=== PATIENT | female | born 1985 | race Caucasian/White ===

== ENCOUNTER 2022-11-12 15:37 | Emergency (ER) | payer SELFPAY ==
[2022-11-12] MEDS ORDERED: FAMOTIDINE 20 MG/2 ML VIAL IV ONE (15:54)
[2022-11-12] MEDS ORDERED: NA CHLORIDE 0.9% 1,000 ML ONE (15:54)
[2022-11-12] MEDS ORDERED: ONDANSETRON 4 MG/2 ML VIAL ONE ×2 (15:54→20:07)
[2022-11-12 16:10] LABS: Absolute Lymphocytes (CBC) 0.8 K/uL (0.7-4.9); Lymphocytes % 3.2 % (15.3-44.8); MCV 91.4 fL (80-100); MPV 8.3 fL (7.6-11.3); RBC Red Blood Cell Count 4.16 M/uL (3.86-4.86)
[2022-11-12 16:33] LABS: ALT/SGPT 171 U/L (13-56); AST/SGOT 272 U/L (15-37); Albumin 3.5 g/dL (3.4-5.0); Alkaline Phosphatase 101 U/L (45-117); BUN Blood Urea Nitrogen 17 mg/dL (7-18); Bicarbonate 27 mEq/L (21-32); Bilirubin Total 1.6 mg/dL (0.2-1.0); Glomerular Filtration Rate 86 ml/min (=/>90); Glucose Level 84 mg/dL (74-106); Potassium 3.7 mEq/L (3.5-5.1); Sodium Level 138 mEq/L (136-145)
[2022-11-12 16:34] LABS: Lipase > 5000 U/L (13-75)
[2022-11-12 17:17] LABS: Urine Blood Trace-intact (Negative); Urine Glucose Negative (Negative); Urine Protein Negative (Negative); Urine Specific Gravity 1.015 (1.005-1.030); Urine pH 5.5 (5.0-7.0)
[2022-11-12] MEDS ORDERED: MORPHINE 4 MG/ML SYR ONE ×2 (17:22→19:54)
[2022-11-12] MEDS ORDERED: Ciprofloxacin 200mg IV 0 MG/0 ML IV.SOLN. IV ONE (17:22)
[2022-11-12] MEDS ORDERED: METRONIDAZOLE 500mg IVPB 500 MG/100 ML BAG IV ONE (17:22)
[2022-11-12] MEDS ORDERED: CIPROFLOXACIN 400mg IV 400 MG/200 ML BAG IV ONE (17:25)
[2022-11-12 17:29] LABS: Urine Specific Gravity/Preg 1.015 (1.005-1.030)
[2022-11-12 17:30] LABS: Urine Bacteria <20 /HPF (<20); Urine Mucus Slight /HPF (None Seen); Urine RBC <5 /HPF (None Seen)
[2022-11-12 18:01] LABS: Blood Morphology Comment NOT SEEN (NOT SEEN); Platelet Estimate ADEQ
--- NOTE | 2022-11-12 18:02 | RAD REPORT ---
EXAM DESCRIPTION: CT - Abdomen Pelvis W Contrast - 11/12/2022 5:40 pm CLINICAL HISTORY: Abdominal pain COMPARISON: none. TECHNIQUE: Computed axial tomography of the abdomen pelvis was obtained. 100 cc Isovue-300 was admin istered intravenously. Oral contrast was not requested which limits evaluation of bowel and appendix All CT scans are performed using dose optimization technique as appropriate and may include automated exposure control or mA/KV adjustment according to patient size. FINDINGS: Mild to moderate dilatation of the intra and extrahepatic biliary tree. The pancreatic head is mildly enlarged. Pancreatic duct is normal caliber. Small to moderate amount o f peripancreatic fluid. No pseudocyst. Portal vein patent The spleen, adrenals and kidneys unremarkable. Normal appendix. No evidence diverticulitis. Prominent irregularly-shaped left ovarian follicle. No s ignificant ascites IMPRESSION: Enlargement of the pancreatic head with small to moderate amount of peripancreatic fluid and mild to moderate dilatation of the biliary tree. Most likely the patient has pancreatitis. However, given the normal pancreatic duct and dilatation of the biliary tree another consideration is that the patient has a pancreatic head mass. It is recommended that the patient have an MRCP and hernandez creas MRI for further evaluation
[2022-11-12 18:15] LABS: SARS-CoV-2 Antigen Rapid Res Negative (Negative)
--- NOTE | 2022-11-12 18:31 | ER ---
Nurse's Notes [facility] Name: Vilma Paz Age: 37 yrs Sex: Female : 1985 Arrival Date: 11/12/2022 Time: 15:39 Bed 7 Private MD: Diagnosis: Biliary acute pancreatitis;Acute pancreatitis without necrosis or infection, unspecified;Abdominal pain, Generalized;Upper abdominal pain, unspecified Presentation: 11/12 15:40 Chief complaint: EMS states: patient called saying she had vomited blood, she has ko1 thrown up 3 times today and it had a "blob" of blood in it the 3rd time. Coronavirus screen: At this time, the client does not indicate any symptoms associated with coronavirus-19. Ebola Screen: No symptoms or risks identified at this time. Initial Sepsis Screen: Does the patient meet any 2 criteria? No. Patient's initial sepsis screen is negative. Does the patient have a suspected source of infection? No. Patient's initial sepsis screen is negative. Risk Assessment: Do you want to hurt yourself or someone else? Patient reports no desire to harm self or others. Onset of symptoms was November 12, 2022. 15:40 Method Of Arrival: EMS: [facility] ko1 15:40 Acuity: ERICA 3 ko1 Triage Assessment: 15:45 General: Appears in no apparent distress. comfortable, Behavior is calm, cooperative, ko1 appropriate for age. Pain: Complains of pain in abdomen. Historical: - Allergies: 15:45 No Known Allergies; ko1 - PMHx: 15:45 down syndrome; Cerebral palsy; ko1 - Immunization history:: Adult Immunizations up to date. - Social history:: Smoking status: Patient denies any tobacco usage or history of. Screenin:36 [facility] ED Fall Risk Assessment (Adult) History of falling in the last 3 months, ph including since admission No falls in past 3 months (0 pts) Confusion or Disorientation No (0 pts) Intoxicated or Sedated No (0 pts) Impaired Gait No (0 pts) Mobility Assist Device Used No (0 pt) Altered Elimination No (0 pt). Abuse screen: Denies threats or abuse. Denies injuries from another. Nutritional screening: No deficits noted. Tuberculosis screening: No symptoms or risk factors identified. Assessment: 16:33 General: Appears in no apparent distress. Behavior is calm, cooperative, appropriate ph for age. Pain: Complains of pain in abdomen Pain radiates to back. Neuro: Level of Consciousness is awake, alert, obeys commands, Oriented to person, place, time, situation. Cardiovascular: Capillary refill < 3 seconds in bilateral fingers Patient's skin is warm and dry. Respiratory: Airway is patent Respiratory effort is even, unlabored, Respiratory pattern is regular, symmetrical. GI: Reports lower abdominal pain, upper abdominal pain, nausea, vomiting. Derm: Skin is healthy with good turgor, Skin is pink, warm \\T\\ dry. Vital Signs: 15:40 BP 120 / 71; Pulse 108; Resp 18; Temp 97; Pulse Ox 99% ; Weight 81.65 kg; Height 5 ft. ko1 7 in. ; 16:30 BP 121 / 78; Pulse 101; Resp 18; Pulse Ox 99% on R/A; ph 17:36 BP 138 / 104; Pulse 99; Resp 18; Pulse Ox 98% on R/A; ph 15:40 Body Mass Index 28.19 (81.65 kg, 170.18 cm) ko1 ED Course: 15:39 Patient arrived in ED. ko1 15:39 Giovani Morales MD is Attending Physician. kdr 15:45 Triage completed. ko1 15:45 Arm band placed on right wrist. ko1 16:02 Type And Screen Sent. ko1 16:02 CBC with Diff Sent. ko1 16:02 CMP Sent. ko1 16:02 Lipase Sent. ko1 16:05 Maintain EMS IV. Dressing intact. Good blood return noted. Site clean \\T\\ dry. Gauge \\T\\ ph site: 20 LAC. 16:28 Darby Britton, RN is Primary Nurse. ph 17:37 Patient has correct armband on for positive identification. Bed in low position. Call ph light in reach. Side rails up X 1. Pulse ox on. NIBP on. 17:38 No provider procedures requiring assistance completed. ph 17:42 CT Abd/Pelvis - IV Contrast Only In Process Unspecified. EDMS 17:53 SARS RAPID Sent. ko1 18:15 [facility] bd Administered Medications: 16:02 Drug: NS 0.9% IV 1000 ml Route: IV; Rate: 1 bolus; Site: left antecubital; ko1 16:02 Drug: Famotidine IVP 20 mg Route: IVP; Site: left antecubital; ko1 16:02 Drug: Ondansetron IVP 4 mg Route: IVP; Site: left antecubital; ko1 17:33 Drug: morphine IVP or IV 4 mg Route: IVP; Infused Over: 4 mins; Site: left antecubital; ph 17:33 Drug: Ciprofloxacin IVPB 400 mg Volume: 200 ml; Route: IVPB; Infused Over: 60 mins; ph Site: left antecubital; Medication: 17:37 VIS not applicable for this client. ph Outcome: 18:31 ER care complete, transfer ordered by . kdr Signatures: Dispatcher [employer] EDMS Snow Perry Kevin, MD MD kdr Darby Britton RN RN Delores Doan RN RN ko1
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
[2022-11-12 23:10] VITALS: BP 115/59; O2SAT 94
[2022-11-12 23:11] VITALS: TEMP 98
== END 2022-11-12 21:15 | disposition short-term general hospital (02) ==
LOC: ER 15:37
DX: K85.10 Biliary acute pancreatitis without necrosis or infection (principal); K85.90 Acute pancreatitis without necrosis or infection, unspecified; R10.10 Upper abdominal pain, unspecified
CPT/HCPCS: 36415; 74177; 80053; 81003; 81015; 81025; 83690; 85025; 86850; 86900; 86901; 87040; 87086; 87088; 87811; 96361; 96365; 96366; 96367; 96375; 99285; J0744; J2405; J7030; Q9967

== ENCOUNTER → 2023-09-08 | Emergency (ER) | payer SELFPAY ==
[~2023-09-08] MED LIST: ASPIRIN 81 MG CHEWABLE TABLET ONE
[2023-09-08 15:15] LABS: Absolute Lymphocytes (CBC) 2.3 K/uL (0.7-4.9); Hematocrit 39.6 % (36.0-45.0); Lymphocytes % 25.4 % (15.3-44.8); MPV 8.1 fL (7.6-11.3); Platelets 341 thou/uL (152-406); RBC Red Blood Cell Count 4.35 M/uL (3.86-4.86)
[2023-09-08 15:35] LABS: ALT/SGPT 18 U/L (13-56); AST/SGOT 11 U/L (15-37); Albumin 3.4 g/dL (3.4-5.0); Alkaline Phosphatase 48 U/L (45-117); BUN Blood Urea Nitrogen 12 mg/dL (7-18); Bicarbonate 27 mEq/L (21-32); Bilirubin Direct 0.1 mg/dL (0-0.2); Bilirubin Indirect, Calculated 0.3 mg/dL (0.2-0.8); Bilirubin Total 0.4 mg/dL (0.2-1.0); Glomerular Filtration Rate 89 ml/min (=/>90); Glucose Level 80 mg/dL (74-106); Magnesium 2.1 mg/dL (1.6-2.4); NT PRO-BNP 22 pg/mL (<125); Potassium 3.8 mEq/L (3.5-5.1); Protein, Total 7.7 g/dL (6.4-8.2); Sodium Level 138 mEq/L (136-145)
[2023-09-08 15:36] LABS: Troponin High Sensitivity < 3.0 pg/mL (<58.9)
--- NOTE | 2023-09-08 16:26 | RAD REPORT ---
EXAM DESCRIPTION: Russ Single View09/08/2023 3:54 pm CLINICAL HISTORY: Chest pain COMPARISON: none FINDINGS: The lungs appear clear of acute infiltrate. The heart is normal size IMPRESSION: No acute abnormalities displayed
--- NOTE | 2023-09-08 17:24 | EDPHYS ---
Physician Documentation [facility] Name: Vilma Paz Age: 37 yrs Sex: Female : 1985 Arrival Date: 09/08/2023 Time: 14:38 Bed 15 Private MD: ED Physician Josep Abel HPI: 09/08 17:40 This 37 yrs old Female presents to ER via Ambulatory with complaints of Chest Pain. kb 17:40 Pt is a 37 year old female who presents with chest pain that started on 0130. Denies kb shortness of breath. States pain is to entire chest and upper back. States she hasn't had pain like this in the past. . 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 - Social history:: Smoking status: Patient denies any tobacco usage or history of. ROS: 15:06 Constitutional: Negative for fever, chills, and weight loss, kb 15:06 Cardiovascular: Positive for chest pain, 15:06 All other systems are negative, Exam: 15:07 Constitutional: This is a well developed, well nourished patient who is awake, alert, kb and in no acute distress. Head/Face: Normocephalic, atraumatic. ENT: Moist Mucous membranes Cardiovascular: Regular rate Respiratory: Respirations even and unlabored. No increased work of breathing. Talking in full sentences Abdomen/GI: Soft, non-tender. No distention Skin: Warm, dry with normal turgor. Normal color. MS/ Extremity: Pulses equal, no cyanosis. Neurovascular intact. Full, normal range of motion. Neuro: Awake and alert, GCS 15, oriented to person, place, time, and situation. Moves all extremities. Normal gait. 15:07 ECG was reviewed by the Attending Physician. Vital Signs: 14:52 BP 123 / 87; Pulse 100; Resp 20; Temp 97.2; Pulse Ox 95% ; Weight 86.18 kg; Pain 8/10; db 16:00 BP 112 / 68; Pulse 88; Resp 14; Pulse Ox 99% on R/A; Pain 8/10; tl4 17:00 BP 112 / 46; Pulse 78; Resp 18 S; Pulse Ox 95% on R/A; cm10 14:52 Pain Scale: Adult db 16:00 Pain Scale: Adult tl4 [place] Coma Score: 16:00 Eye Response: spontaneous(4). Motor Response: obeys commands(6). Verbal Response: tl4 oriented(5). Total: 15. MDM: 14:43 Patient medically screened. kb 17:40 Data reviewed: vital signs, nurses notes. kb 17:41 Differential diagnosis: abnormal EKG, acute myocardial infarction, coronary artery kb disease chest wall pain, pulmonary embolus. Consideration of Admission/Observation Escalation of care including admission/observation considered. admission considered but serial troponin negative, HEART score 0. Test considered but Not performed: CT: CT chest considered, but d-dimer wnl. Historians other than the Patient: Parent: mother. Counseling: I had a detailed discussion with the patient and/or guardian regarding the historical points, exam findings, and any diagnostic results supporting the discharge/admit diagnosis, lab results, radiology results, the need for outpatient follow up, a family practitioner, to return to the emergency department if symptoms worsen or persist or if there are any questions or concerns that arise at home. 09/08 14:47 Order name: Basic Metabolic Panel; Complete Time: 15:38 kb 09/08 14:47 Order name: CBC with Diff; Complete Time: 15:18 kb 09/08 14:47 Order name: LFT's; Complete Time: 15:38 kb 09/08 14:47 Order name: Magnesium; Complete Time: 15:38 kb 09/08 14:47 Order name: NT PRO-BNP; Complete Time: 15:38 kb 09/08 14:47 Order name: Troponin HS; Complete Time: 15:38 kb 09/08 15:07 Order name: D-Dimer; Complete Time: 17:22 kb 09/08 16:44 Order name: Troponin High Sensitivity; Complete Time: 17:23 kb 09/08 14:47 Order name: XRAY Chest (1 view); Complete Time: 16:34 kb 09/08 14:47 Order name: EKG; Complete Time: 14:48 kb 09/08 14:47 Order name: Cardiac monitoring; Complete Time: 16:03 kb 09/08 14:47 Order name: EKG - Nurse/Tech; Complete Time: 14:57 kb 09/08 14:47 Order name: IV Saline Lock; Complete Time: 15:05 kb 09/08 14:47 Order name: Labs collected and sent; Complete Time: 15:05 kb 09/08 14:47 Order name: O2 Per Protocol; Complete Time: 16:03 kb 09/08 14:47 Order name: O2 Sat Monitoring; Complete Time: 16:03 kb EC:07 Rate is 105 beats/min. Rhythm is regular. QRS [place] is Normal. NV interval is normal at kb 124 msec. QRS interval is normal at 72 msec. QT interval is normal at 454 msec. Administered Medications: 15:05 Drug: Aspirin PO Chewable Tablet 324 mg PO once; 81 mg tablets x 4 Route: PO; ll1 Disposition: 17:56 Co-signature as Attending Physician, Josep Abel MD I reviewed the patient's care rn provided by the Advanced Practice Provider and agree with the diagnosis and treatment plan. Disposition Summary: 09/08/23 17:24 Discharge Ordered Notes: Location: Home kb Condition: Stable kb Diagnosis - Chest pain, unspecified kb Followup: kb - With: Emergency Department - When: As needed - Reason: Worsening of condition Followup: kb - With: Private Physician - When: 2 - 3 days - Reason: Recheck today's complaints, Continuance of care, Re-evaluation by your physician Discharge Instructions: - Discharge Summary Sheet kb - Nonspecific Chest Pain, Adult, [id number] kb Forms: - Medication Reconciliation Form kb - Thank You Letter kb - Antibiotic Education kb - Prescription Opioid Use kb - Patient Portal Instructions kb - Leadership Thank You Letter kb Signatures: Dispatcher [employer] Anali Henao, HEATER HELPER-C HEATER HELPER-Josep Kenyon MD MD rn Lewis, Lynsay RN RN ll1 Suzie Taveras, RN RN db
--- NOTE | 2023-09-08 17:24 | ER ---
Nurse's Notes [facility] Name: Vilma Paz Age: 37 yrs Sex: Female : 1985 Arrival Date: 09/08/2023 Time: 14:38 Bed 15 Private MD: Diagnosis: Chest pain, unspecified Presentation: 09/08 14:44 Chief complaint: Patient states: CP radiates into back, began at 0130 AM. Worried about ll1 having MO. Ebola Screen: Patient denies travel to an Ebola-affected area in the 21 days before illness onset. Initial Sepsis Screen: Does the patient meet any 2 criteria? No. Patient's initial sepsis screen is negative. Does the patient have a suspected source of infection? No. Patient's initial sepsis screen is negative. Risk Assessment: Do you want to hurt yourself or someone else? Patient reports no desire to harm self or others. 14:44 Method Of Arrival: Ambulatory ll1 14:44 Acuity: ERICA 3 ll1 14:52 Chief complaint: Patient states: CHEST PAIN STARTED THIS AM AT 0130. STATES THINKS db PASSED OUT AND WOKE UP ON THE FLOOR TODAY. LEFT ARM PAIN WITH INTERMITTENT NUMBNESS AND TINGLING. Coronavirus screen: Client denies travel out of the [place] in the last 14 days. At this time, the client does not indicate any symptoms associated with coronavirus-19. Onset of symptoms was September 08, 2023. 14:53 Coronavirus screen: Client denies travel out of the [place] in the last 14 days. At this ll1 time, the client does not indicate any symptoms associated with coronavirus-19. Onset of symptoms was September 08, 2023. Triage Assessment: 14:55 General: Appears in no apparent distress. comfortable, Behavior is calm, cooperative. db Pain: Complains of pain in chest. Pain: Pain radiates to left arm. Neuro: Level of Consciousness is awake, alert, obeys commands, Oriented to person, place, time, situation. Cardiovascular: Reports chest pain, Capillary refill < 3 seconds Patient's skin is warm and dry. Respiratory: Airway is patent Respiratory effort is even, unlabored, Respiratory pattern is regular, symmetrical. 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 - Social history:: Smoking status: Patient denies any tobacco usage or history of. Screenin:57 [facility] ED Fall Risk Assessment (Adult) History of falling in the last 3 months, db including since admission No falls in past 3 months (0 pts) Confusion or Disorientation No (0 pts) Intoxicated or Sedated No (0 pts) Impaired Gait No (0 pts) Mobility Assist Device Used No (0 pt) Altered Elimination No (0 pt) Score/Fall Risk Level 0 - 2 = Low Risk Oriented to surroundings, Maintained a safe environment. Abuse screen: Denies threats or abuse. Denies injuries from another. Nutritional screening: No deficits noted. Tuberculosis screening: No symptoms or risk factors identified. Assessment: 15:05 Reassessment: No changes from previously documented assessment. Patient and/or family ll1 updated on plan of care and expected duration. Pain level reassessed. Patient is alert, oriented x 3, equal unlabored respirations, skin warm/dry/pink. 15:41 Reassessment: No changes from previously documented assessment. Patient and/or family ll1 updated on plan of care and expected duration. Pain level reassessed. 15:58 Reassessment: No changes from previously documented assessment. Patient and/or family tl4 updated on plan of care and expected duration. Pain level reassessed. Patient is alert, oriented x 3, equal unlabored respirations, skin warm/dry/pink. Pain: Complains of pain in back and chest Pain began suddenly, 0400. Vital Signs: 14:52 BP 123 / 87; Pulse 100; Resp 20; Temp 97.2; Pulse Ox 95% ; Weight 86.18 kg; Pain 8/10; db 16:00 BP 112 / 68; Pulse 88; Resp 14; Pulse Ox 99% on R/A; Pain 8/10; tl4 17:00 BP 112 / 46; Pulse 78; Resp 18 S; Pulse Ox 95% on R/A; cm10 14:52 Pain Scale: Adult db 16:00 Pain Scale: Adult tl4 Vitals: 16:00 Cardiac Rhythm Assessment Regular Sinus rhythm. tl4 [place] Coma Score: 16:00 Eye Response: spontaneous(4). Motor Response: obeys commands(6). Verbal Response: tl4 oriented(5). Total: 15. ED Course: 14:41 Patient arrived in ED. im 14:43 [facility] Wood [facility]-C [facility] kb 14:43 Josep Abel MD is Attending Physician. kb 14:44 Triage completed. ll1 14:44 Arm band placed on. ll1 14:57 Patient has correct armband on for positive identification. db 14:57 EKG done, by ED staff, reviewed by Anali SWEENEY. Patient maintains SpO2 db saturation greater than 95% on room air. 15:06 Initial lab(s) drawn, by me, sent to lab. Inserted saline lock: 20 gauge in right aw1 antecubital area, using aseptic technique. 15:40 Patient placed in an exam room, on a stretcher. ll1 15:52 LogdaDemetri marcos is Primary Nurse. tl4 15:56 XRAY Chest (1 view) In Process Unspecified. EDMS 16:01 No provider procedures requiring assistance completed. tl4 16:02 Client placed on continuous cardiac and pulse oximetry monitoring. NIBP monitoring tl4 applied. service center supervisor on. 16:02 Provided Education on: ED process. tl4 16:03 D-Dimer Sent. tl4 17:41 IV discontinued, intact, bleeding controlled, No redness/swelling at site. Pressure cm10 dressing applied. Administered Medications: 15:05 Drug: Aspirin PO Chewable Tablet 324 mg PO once; 81 mg tablets x 4 Route: PO; ll1 Medication: 16:01 VIS not applicable for this client. tl4 Outcome: 17:24 Discharge ordered by . kb 17:41 Discharged to home ambulatory, with family, cm10 17:41 Condition: good 17:41 Discharge instructions given to patient, Instructed on discharge instructions, follow up and referral plans. Demonstrated understanding of instructions, follow-up care, 17:41 Patient left the ED. cm10 Signatures: Dispatcher [employer] EDMS Anali Wood FNP-C FNP-Ckb Lewis, Lynsay, RN RN ll1 Suzie Taveras RN RN db Mary Mcdaniel Clarissa, RN RN cm10 Jazmin Gotti aw1 LogdaDemetri marcos tl4 Corrections: (The following items were deleted from the chart) 14:54 14:44 Chief complaint: Patient states: CP radiates into back. Worried about having MO ll1 ll1
[2023-09-08 20:43] VITALS: BP 112/46; TEMP 97.2; O2SAT 95
--- NOTE | 2023-09-10 13:28 | EKG ---
Test Date: 2023-09-08 Test Time: 14:57:49 Writing Tutor: KATHI MEASUREMENT RESULTS: Intervals: Rate: 105 MI: 124 QRSD: 72 QT: 344 QTc: 454 [place]: P: 83 MI: 124 QRS: 75 T: 71 INTERPRETIVE STATEMENTS: Sinus tachycardia Otherwise normal ECG No previous ECG available for comparison Electronically Signed On 09-10-23 13:24:19 SCENE AND LIGHTING DESIGN LECTURER by Facundo Georges
== END ==
LOC: ER 14:38
DX: R07.9 Chest pain, unspecified (principal)
CPT/HCPCS: 36415; 71045; 80048; 80076; 83735; 83880; 84484; 85025; 85379; 93005; 99285

== ENCOUNTER 2023-12-04 11:52 | Observation (INO) | payer OTHER, SELFPAY ==
[2023-12-04 13:00] LABS: Absolute Basophils 0.1 K/uL (0-0.5); Absolute Eosinophils 0.1 K/uL (0-0.5); Absolute Lymphocytes (CBC) 1.6 K/uL (0.7-4.9); Absolute Monocytes 0.5 K/uL (0.1-1.3); Absolute Neutrophil 7.4 K/uL (1.8-8.0); Basophils % 0.8 % (0-1.3); Eosinophils % 1.3 % (0-4.4); Hematocrit 38.5 % (36.0-45.0); Hemoglobin 12.8 g/dL (12.0-15.0); Lymphocytes % 16.5 % (15.3-44.8); MCH 30.5 pg (27.0-35.0); MCHC 33.3 g/dL (32.0-36.0); MCV 91.6 fL (80-100); MPV 8.4 fL (7.6-11.3); Monocytes % 5.5 % (3.3-12.3); Neutrophils % 75.9 % (41.7-73.7); Platelets 382 thou/uL (152-406); RBC Red Blood Cell Count 4.21 M/uL (3.86-4.86); Red Cell Distribution Width 13.7 % (12.1-15.2)
[2023-12-04 13:08] LABS: PT Prothrombin Time 11.3 SECONDS (9.5-12.5); PTT, Activated Partial Thromb 31.5 SECONDS (24.3-36.9); Protime INR 1.03
[2023-12-04 13:19] LABS: ALT/SGPT 16 U/L (13-56); AST/SGOT 12 U/L (15-37); Albumin 3.5 g/dL (3.4-5.0); Albumin/Globulin Ratio 0.8 (1.1-1.8); Alkaline Phosphatase 51 U/L (45-117); Anion Gap 6.8 mEq/L (5.0-15.0); BUN Blood Urea Nitrogen 16 mg/dL (7-18); Bicarbonate 27 mEq/L (21-32); Bilirubin Total 0.3 mg/dL (0.2-1.0); Globulin 4.2 g/dL (2.3-3.5); Glomerular Filtration Rate 89 ml/min (=/>90); Glucose Level 92 mg/dL (74-106); Magnesium 1.9 mg/dL (1.6-2.4); Potassium 3.8 mEq/L (3.5-5.1); Protein, Total 7.7 g/dL (6.4-8.2); Sodium Level 138 mEq/L (136-145)
[2023-12-04 13:23] LABS: Bilirubin Direct < 0.1 mg/dL (0-0.2); Bilirubin Indirect, Calculated ND mg/dL (0.2-0.8); Troponin High Sensitivity < 3.0 pg/mL (<58.9)
--- NOTE | 2023-12-04 13:38 | RAD REPORT ---
EXAM DESCRIPTION: CT - CTHCSPWOC - 12/04/2023 1:15 pm CLINICAL HISTORY: Trauma, head and neck injury. SYNCOPE COMPARISON: Head C Spine Mpr Wo Con dated 07/01/2022 TECHNIQUE: Axial 5 mm thick images of the head were obtained. Axial 2 mm thick images of the cervical spine were obtained with sagittal and coronal reconstruction images generated and reviewed. All CT scans are performed using dose optimization technique as appropriate and may include automated exposure control or mA/KV adjustment according to patient size. FINDINGS: CT HEAD WITHOUT CONTRAST: No acute hemorrhage, hydrocephalus or extra-axial collection is identified.No areas of brain edema or midline shift. The paranasal sinuses and mastoids are clear.The calvarium is intact. CT CERVICAL SPINE WITHOUT CONTRAST: No fracture or subluxation.No prevertebral soft tissues swelling is identified. IMPRESSION: No acute intracranial or cervical spine findings.
[2023-12-04 13:43] LABS: Specific Gravity 1.011 (1.005-1.030)
[2023-12-04 13:47] LABS: Specific Gravity 1.011 (1.005-1.030); Sqamous Epithelial <5 /HPF (None Seen); Urine Bacteria <20 /HPF (<20); Urine Bilirubin NEGATIVE (Negative); Urine Blood 3+ (OVER) (Negative); Urine Clarity Extremely Turbid (Clear); Urine Color Light-Brown (Yellow); Urine Culture Reflex Order REFLEXED; Urine Glucose NEGATIVE (Negative); Urine Ketones NEGATIVE (Negative); Urine Microscopic Reflex YN ORDER UMIC; Urine Nitrite NEGATIVE (Negative); Urine Protein TRACE (Negative); Urine RBC >50 /HPF (None Seen); Urine Urobilinogen Normal (Normal); Urine WBC 20-50 /HPF (<5)
--- NOTE | 2023-12-04 13:57 | RAD REPORT ---
EXAM DESCRIPTION: RAD - Chest Single View - 12/04/2023 1:48 pm CLINICAL HISTORY: CHEST PAIN COMPARISON: Chest Single View dated 09/08/2023 FINDINGS: Lines: None. Lungs: No evidence of edema or pneumonia. Pleural: No significant pleural effusions or pneumothorax. Cardiac: The heart size is within normal limits. Mediastinum: Within normal limits. Bones: No acute fractures. Other: None IMPRESSION: No acute cardiopulmonary disease.
[2023-12-04] MEDS ORDERED: NA CHLORIDE 0.9% 1,000 ML ONE (14:13)
--- NOTE | 2023-12-04 15:45 | ER ---
Nurse's Notes [facility] Name: Vilma Paz Age: 38 yrs Sex: Female : 1985 Arrival Date: 12/04/2023 Time: 11:52 Bed 20 Private MD: Diagnosis: Syncope;Weakness;Chest pain, unspecified Presentation: 12/03 12:27 Chief complaint: Chief complaint: Patient states: Syncopal episode while at the [facility] bathroom, states she hit her head when she feel. CO headache and chest pain since August. Coronavirus screen: Vaccine status: Patient reports being unvaccinated. Ebola Screen: Patient denies travel to an Ebola-affected area in the 21 days before illness onset. Initial Sepsis Screen: Does the patient meet any 2 criteria? HR > 90 bpm. No. Patient's initial sepsis screen is negative. Does the patient have a suspected source of infection? No. Patient's initial sepsis screen is negative. Risk Assessment: Do you want to hurt yourself or someone else? Patient reports no desire to harm self or others. Onset of symptoms was December 04, 2023. 12:27 Method Of Arrival: Ambulatory [facility] 12:27 Acuity: ERICA 3 [facility] Triage Assessment: 12:34 General: Appears in no apparent distress. comfortable, Behavior is calm, cooperative, [facility] appropriate for age. 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 - Infectious Disease History:: Denies. - Social history:: Smoking status: Patient denies any tobacco usage or history of. Screenin:00 [facility] ED Fall Risk Assessment (Adult) History of falling in the last 3 months, ab3 including since admission Yes- physiologic fall (2 pts) Confusion or Disorientation No (0 pts) Intoxicated or Sedated No (0 pts) Impaired Gait Yes (1 pt) Mobility Assist Device Used No (0 pt) Altered Elimination No (0 pt) Score/Fall Risk Level 3 or more points = High Risk Oriented to surroundings, Maintained a safe environment, Educated pt \T\ family on fall prevention, incl call for assistance when getting out of bed, Assessed \T\ reinforced patient's understanding of fall precautions, Provided non-skid footwear, Hourly rounding (assess needs \T\ fall precautionary measures) done, Used ambulatory aids as needed (educated on \T\ assisted with), Implemented a Fall Risk Plan of Care, Apply high fall risk patient identification: yellow non skid footwear/ fall signage, Remained w/in arm's length of patient and in sight while toileting, Offered frequent toileting (1:1 observation), Remained with patient while ambulating, Utilized family, sitter, or virtual shipping & receiving lead as indicated. Abuse screen: Denies threats or abuse. Nutritional screening: No deficits noted. Tuberculosis screening: No symptoms or risk factors identified. Never had TB. Possible symptoms: None Risk factors: None Intervention for positive screen:. Assessment: 12:58 General: Appears in no apparent distress. Pain: Complains of pain in head and abdomen ab3 Pain does not radiate. Pain currently is 7 out of 10 on a pain scale. Neuro: Dunn Agitation-Sedation Scale (RASS): Level of Consciousness is awake, alert, obeys commands, Oriented to person, place, time, situation, Appropriate for age Meter/Relay Technician are equal bilaterally Moves all extremities. Weakness weakness to BLE upon standing. . Gait is unsteady, intermittent. Speech Facial symmetry appears normal, Intact Reports dizziness, headache a syncopal episode Patient reports 2 syncopal episodes today; unwitnessed. The first time she states she hit her head, with no open wounds or obvious external trauma and 2nd time, she did not head. . Cardiovascular: Reports chest pain, lightheadedness, syncope, Per patient she woke up with chest pain this morning and remains resolved. lightheadedness continues intermittently. Respiratory: No deficits noted. Airway is patent Respiratory effort is even, unlabored, Respiratory pattern is regular. GI: Reports lower abdominal pain, nausea, vomiting, 1 episode of vomiting just prior to 2nd syncopal episode, per patient. 12:58 Cardiovascular: Rhythm is sinus arrythmia. ab3 14:20 Reassessment: Patient appears in no apparent distress at this time. Patient assisted ab3 with hygiene and pro-wick applied D/T pt dizziness and unsteadiness when attempting to get up to BRVAMSHI Monge and daljit with corina. Vital Signs: 12:27 BP 112 / 76; Pulse 99; Resp 18; Temp 97.7(TE); Pulse Ox 99% on R/A; Weight 81.65 kg; nj1 Height 5 ft. 6 in. ; Pain 4/10; 13:00 BP 116 / 74; Pulse 82; Resp 16; Temp 98; Pulse Ox 100% on R/A; ab3 13:45 BP 106 / 66; Pulse 79; Resp 16; Pulse Ox 100% on R/A; ab3 13:45 BP 108 / 83; Pulse 77; Resp 14; Pulse Ox 100% on R/A; ab3 14:30 BP 106 / 75; Pulse 84; Resp 16; Pulse Ox 99% on R/A; ab3 15:00 BP 99 / 67; Pulse 80; Resp 16; Pulse Ox 100% on R/A; ab3 16:00 BP 106 / 71; Pulse 84; Resp 18; Pulse Ox 99% on R/A; ab3 17:00 BP 106 / 71; Pulse 81; Resp 16; Temp 98.8; Pulse Ox 100% on R/A; Pain 0/10; ab3 12:27 Body Mass Index 29.05 (81.65 kg, 167.64 cm) nj1 12:27 Pain Scale: Adult nj1 17:00 Pain Scale: Adult ab3 Clyde Coma Score: 13:00 Eye Response: spontaneous(4). Motor Response: obeys commands(6). Verbal Response: ab3 oriented(5). Total: 15. 16:00 Eye Response: spontaneous(4). Motor Response: obeys commands(6). Verbal Response: ab3 oriented(5). Total: 15. ED Course: 12:00 Patient arrived in ED. ra3 12:04 Anali Wood FNP-C is [facility]. kb 12:04 Fran Almanza MD is Attending Physician. kb 12:29 Triage completed. nj1 12:30 Arm band placed on right wrist. nj1 12:56 Patient has correct armband on for positive identification. Fall risk band placed. Bed jg11 in low position. Side rails up X 1. Side rails up X2. Client placed on continuous cardiac and pulse oximetry monitoring. NIBP monitoring applied. screen printing supervisor on. Pulse ox on. 12:56 Initial lab(s) drawn, by me, sent to lab. EKG done, by ED staff. Inserted saline lock: jg11 22 gauge in left antecubital area, using aseptic technique. Blood collected. Missed attempt(s): 20 gauge in right antecubital area. Bleeding controlled, band aid applied, catheter tip intact. 12:58 EKG completed in triage. Results shown to MD. ab3 12:58 Client placed on continuous cardiac and pulse oximetry monitoring. NIBP monitoring ab3 applied. screen printing supervisor on. Pulse ox on. NIBP on. 12:58 Adult w/ patient. ab3 12:58 Provided Education on: ER process and Fall risk precautions. . ab3 13:14 CT Head C Spine In Process Unspecified. EDMS 13:38 Darby Britton, NARINDER is Primary Nurse. ph 13:39 Test, Urine Sent. ph 13:39 Urinalysis w/ reflexes Sent. ph 13:50 Chest Single View XRAY In Process Unspecified. EDMS 14:25 No apparent distress. Resting quietly. Awaiting lab results, Awaiting disposition. ab3 14:26 IV is patent, is intact, with fluids infusing freely. ab3 15:44 Zurdo Kurtz is Hospitalizing Provider. kb 17:04 Admitting physician to see patient. ab3 17:19 Patient admitted, IV remains in place. intact. ab3 17:37 No provider procedures requiring assistance completed. ab3 Administered Medications: 14:10 Drug: NS 0.9% IV 1000 ml IV at 1000 ml once Route: IV; Rate: 1000 ml; Site: left ab3 antecubital; Delivery: Primary tubing; 15:10 Follow up: IV Status: Completed infusion; IV Intake: 1000ml ab3 16:41 Drug: D10 in Water IVP 125 ml IVP once Route: IVP; Site: right antecubital; ph 16:52 Follow up: Response: No adverse reaction ab3 17:22 Follow up: Response: Blood sugar is lowered; BG impoved ab3 Medication: 14:05 VIS not applicable for this client. ab3 Point of Care Testing: Blood Glucose: 16:10 Blood Glucose: 66 mg/dL; ab3 17:04 Blood Glucose: 101 mg/dL; ab3 16:10 RN to notify VAMSHI Wood. ab3 Ranges: Intake: 15:10 IV: 1000ml; Total: 1000ml. ab3 Outcome: 15:45 Decision to Hospitalize by Provider. kb 17:20 Condition: stable ab3 17:36 Admitted to Tele accompanied by nurse, via stretcher, Report called to [facility] FAXED; ab3 Ivory notified. 17:43 Patient left the ED. [facility] Signatures: Dispatcher [employer] EDWI Anali Wood, SANITATION WORKER CLEANING MACHINERY-C SANITATION WORKER CLEANING MACHINERY-Darby Evans, RN RN Roxana Caldwell RN RN nj1 Georgina Rubio 5 Priyank Correa1 Marion Mckeon 3 Denise Muñoz RN RN ab3 Corrections: (The following items were deleted from the chart) 12:30 12:27 Chief complaint: nj1 nj1
--- NOTE | 2023-12-04 15:45 | EDPHYS ---
Physician Documentation [facility] Name: Vilma Paz Age: 38 yrs Sex: Female : 1985 Arrival Date: 12/04/2023 Time: 11:52 Bed 20 Private MD: ED Physician Fran Almanza HPI: 12/03 17:49 This 38 yrs old Female presents to ER via Ambulatory with complaints of Syncope, Head kb Injury-Adult. 17:49 Pt is a 38 year old female who was brought in by mother for syncope. Mother states pt kb was at work and she received a call that pt passed out in the restroom. Pt reports she had chest pain this morning, but went into work anyway. 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 - Infectious Disease History:: Denies. - Social history:: Smoking status: Patient denies any tobacco usage or history of. ROS: 15:53 Constitutional: As per HPI kb Exam: 15:53 Constitutional: This is a well developed, well nourished patient who is awake, alert, kb and in no acute distress. Head/Face: Normocephalic, atraumatic. Eyes: Pupils equal round and reactive to light, extra-ocular motions intact. Lids and lashes normal. Conjunctiva and sclera are non-icteric and not injected. Cornea within normal limits. Periorbital areas with no swelling, redness, or edema. ENT: Moist Mucous membranes Neck: Trachea midline, no thyromegaly or masses palpated, and no cervical lymphadenopathy. Supple, full range of motion without nuchal rigidity, or vertebral point tenderness. No Meningismus. Cardiovascular: Regular rate Respiratory: Respirations even and unlabored. No increased work of breathing. Talking in full sentences Abdomen/GI: Soft, non-tender. No distention Skin: Warm, dry with normal turgor. Normal color. MS/ Extremity: Pulses equal, no cyanosis. Neurovascular intact. Full, normal range of motion. Neuro: Awake and alert, GCS 15, oriented to person, place, time, and situation. Moves all extremities. 17:29 ECG was reviewed by the Attending Physician. kb Vital Signs: 12:27 BP 112 / 76; Pulse 99; Resp 18; Temp 97.7(TE); Pulse Ox 99% on R/A; Weight 81.65 kg; nj1 Height 5 ft. 6 in. ; Pain 4/10; 13:00 BP 116 / 74; Pulse 82; Resp 16; Temp 98; Pulse Ox 100% on R/A; ab3 13:45 BP 106 / 66; Pulse 79; Resp 16; Pulse Ox 100% on R/A; ab3 13:45 BP 108 / 83; Pulse 77; Resp 14; Pulse Ox 100% on R/A; ab3 14:30 BP 106 / 75; Pulse 84; Resp 16; Pulse Ox 99% on R/A; ab3 15:00 BP 99 / 67; Pulse 80; Resp 16; Pulse Ox 100% on R/A; ab3 16:00 BP 106 / 71; Pulse 84; Resp 18; Pulse Ox 99% on R/A; ab3 17:00 BP 106 / 71; Pulse 81; Resp 16; Temp 98.8; Pulse Ox 100% on R/A; Pain 0/10; ab3 12:27 Body Mass Index 29.05 (81.65 kg, 167.64 cm) nj1 12:27 Pain Scale: Adult nj1 17:00 Pain Scale: Adult ab3 [place] Coma Score: 13:00 Eye Response: spontaneous(4). Motor Response: obeys commands(6). Verbal Response: ab3 oriented(5). Total: 15. 16:00 Eye Response: spontaneous(4). Motor Response: obeys commands(6). Verbal Response: ab3 oriented(5). Total: 15. MDM: 12:04 Patient medically screened. kb 17:47 Differential Diagnosis: cardiac arrhythmia, idiopathic syncope, vasovagal episode. Data kb reviewed: vital signs, nurses notes. Consideration of Admission/Observation Patient was admitted/placed on observation. Escalation of care including admission/observation considered. Management of patient was discussed with the following: Hospitalist: Dr Kurtz accepts pt for admission. Historians other than the Patient: Parent: mother. Counseling: I had a detailed discussion with the patient and/or guardian regarding the historical points, exam findings, and any diagnostic results supporting the discharge/admit diagnosis, lab results, radiology results, the need for further work-up and treatment in the hospital. ED course: Pt is able to get from stretcher to bedside commode, but when she gets up from bedside commode she reports weakness to legs and has to be lowered to ground. Concerned about pt falling if sent home. Will admit. 12/03 12:19 Order name: Basic Metabolic Panel; Complete Time: 17:21 kb 12/03 12:19 Order name: CBC with Diff; Complete Time: 13:10 kb 12/03 12:19 Order name: Hepatic Function; Complete Time: 17:21 kb 12/03 12:19 Order name: Magnesium; Complete Time: 17:21 kb 12/03 12:19 Order name: Test, Urine; Complete Time: 13:49 kb 12/03 12:19 Order name: Protime (+inr); Complete Time: 13:10 kb 12/03 12:19 Order name: Ptt, Activated; Complete Time: 13:10 kb 12/03 12:19 Order name: Troponin High Sensitivity; Complete Time: 17:21 kb 12/03 12:19 Order name: Urinalysis w/ reflexes; Complete Time: 13:49 kb 12/03 13:50 Order name: Urine Culture EDMS 12/03 16:11 Order name: T4 Free EDMS 12/03 16:11 Order name: Thyroid Stimulating Hormone EDMS 12/03 16:11 Order name: Basic Metabolic Panel EDMS 12/03 16:11 Order name: Basic Metabolic Panel EDMS 12/03 16:11 Order name: Basic Metabolic Panel EDMS 12/03 16:11 Order name: Basic Metabolic Panel EDMS 12/03 16:11 Order name: Basic Metabolic Panel EDMS 12/03 16:11 Order name: Basic Metabolic Panel EDMS 12/03 16:11 Order name: CBC with Automated Diff EDMS 12/03 16:11 Order name: CBC with Automated Diff EDMS 12/03 16:11 Order name: CBC with Automated Diff EDMS 12/03 16:11 Order name: CBC with Automated Diff EDMS 12/03 16:11 Order name: CBC with Automated Diff EDMS 12/03 16:11 Order name: CBC with Automated Diff EDMS 16:11 Order name: Lipid Profile EDMS / 16:11 Order name: Lipid Profile EDMS / 16:11 Order name: Magnesium EDMS 04/ 16:11 Order name: Magnesium EDMS 04/ 16:11 Order name: Magnesium EDMS 04/ 16:11 Order name: Magnesium EDMS 04/ 16:11 Order name: Magnesium EDMS 04/ 16:11 Order name: Magnesium EDMS 04/ 16:11 Order name: Phosphorus EDMS 04/ 16:11 Order name: Phosphorus EDMS 04/ 16:11 Order name: Phosphorus EDMS 04/ 16:11 Order name: Phosphorus EDMS 04/ 16:11 Order name: Phosphorus EDMS 04/ 16:11 Order name: Phosphorus EDMS 04/ 16:11 Order name: Troponin High Sensitivity EDMS 12/03 16:11 Order name: Troponin High Sensitivity EDMS 12/03 16:11 Order name: Troponin High Sensitivity EDMS 04/ 16:22 Order name: Glucose, Ancillary Testing; Complete Time: 16:23 EDMS 12/03 17:16 Order name: T4 Free; Complete Time: 17:21 EDMS 12/03 17:16 Order name: Thyroid Stimulating Hormone; Complete Time: 17:21 EDMS 04 17:17 Order name: Glucose, Ancillary Testing; Complete Time: 17:21 EDMS 12/03 12:19 Order name: CT Head C Spine; Complete Time: 13:38 kb 12/03 12:19 Order name: Chest Single View XRAY; Complete Time: 14:01 kb 12/03 12:19 Order name: Cardiac monitoring; Complete Time: 13:38 kb 12/03 12:19 Order name: EKG - Nurse/Tech; Complete Time: 13:39 kb 12/03 12:19 Order name: IV Saline Lock; Complete Time: 13:39 kb 12/03 12:19 Order name: Labs collected and sent; Complete Time: 13:39 kb 12/03 12:19 Order name: NPO; Complete Time: 13:39 kb 12/03 12:19 Order name: O2 Per Protocol; Complete Time: 13:39 kb 12/03 12:19 Order name: O2 Sat Monitoring; Complete Time: 13:39 kb 12/03 13:26 Order name: Blood Glucose Level; Complete Time: 16:12 nj1 EC:29 Rate is 77 beats/min. Rhythm is regular. QRS [place] is Normal. NM interval is normal at kb 128 msec. QRS interval is normal at 78 msec. QT interval is normal at 439 msec. Administered Medications: 14:10 Drug: NS 0.9% IV 1000 ml IV at 1000 ml once Route: IV; Rate: 1000 ml; Site: left ab3 antecubital; Delivery: Primary tubing; 15:10 Follow up: IV Status: Completed infusion; IV Intake: 1000ml ab3 16:41 Drug: D10 in Water IVP 125 ml IVP once Route: IVP; Site: right antecubital; ph 16:52 Follow up: Response: No adverse reaction ab3 17:22 Follow up: Response: Blood sugar is lowered; BG impoved ab3 Point of Care Testing: Blood Glucose: 16:10 Blood Glucose: 66 mg/dL; ab3 17:04 Blood Glucose: 101 mg/dL; ab3 16:10 RN to notify FNP. daniella Wood Ranges: Critical Glucose Levels:Adult <50 mg/dl or >400 mg/dl <40 mg/dl or >180 mg/dl Disposition Summary: 12/04/23 15:45 Hospitalization Ordered Notes: Hospitalization Status: Observation kb Provider: Zurdo Kurtz Location: Telemetry/MedSurg (observation) kb Condition: Stable kb Problem: new kb Symptoms: are unchanged kb Bed/Room Type: Standard Room Assignment: 406(12/04/23 17:24) Diagnosis - Syncope kb - Weakness kb - Chest pain, unspecified kb Forms: - Medication Reconciliation Form kb - SBAR form kb - Leadership Thank You Letter kb Signatures: Dispatcher [employer] EDAnali Hathaway FNP-C FNP-Katina Pastrana RN RN dw Hall, Patricia RN RN Roxana Caldwell, RN RN nj1 Georgina Rubio 5 Denise Muñoz RN RN ab3 Corrections: (The following items were deleted from the chart) 12:19 12:19 BASIC METABOLIC PANEL+C.LAB.BRZ ordered. EDMS EDMS 12:19 12:19 CBC+H.LAB.BRZ ordered. EDMS EDMS 12:19 12:19 HEPATIC FUNCTION+C.LAB.BRZ ordered. EDMS EDMS 12:19 12:19 MAGNESIUM+C.LAB.BRZ ordered. EDMS EDMS 12:19 12:19 Test, Urine+UC.LAB.BRZ ordered. EDMS EDMS 12:19 12:19 PROTIME (+INR)+COAG.LAB.BRZ ordered. EDMS EDMS 12:19 12:19 PTT, ACTIVATED+COAG.LAB.BRZ ordered. EDMS EDMS 12:19 12:19 Troponin High Sensitivity+C.LAB.BRZ ordered. EDMS EDMS 12:19 12:19 Urinalysis+U.LAB.BRZ ordered. EDMS EDMS 12:19 12:19 Head C Spine MPR Wo Con+CT.RAD.BRZ ordered. EDMS EDMS 12:19 12:19 Chest Single View+RAD.RAD.BRZ ordered. EDMS EDMS 16:38 15:45 kb mc5 17:24 16:38 419 mc5 dw
[2023-12-04] MEDS ORDERED: D10W 250 ML IV ONE (16:24)
[2023-12-04] MEDS ORDERED: ACETAMINOPHEN 500 MG TAB PO PRN (17:05)
[2023-12-04] MEDS ORDERED: MORPHINE 2 MG/ML SYR IV PRN (17:05)
[2023-12-04] MEDS ORDERED: NITROGLYCERIN 0.4 MG/TAB SL PRN (17:05)
--- NOTE | 2023-12-04 17:44 | P.HP ---
Certification for Inpatient Patient admitted to: Observation With expected LOS: <2 Midnights Practitioner: I am a practitioner with admitting privileges, knowledge of patient current condition, hospital course, and medical plan of care. Services: Services provided to patient in accordance with Admission requirements found in Title 42 Section 412.3 of the Code of Federal Regulations Patient History Date of Service: 12/04/23 Reason for admission: 'I passed out' History of Present Illness: 38-year-old woman with a history of Down syndrome and cerebral palsy was brought to the emergency department because she passed out while at work. According to the patient she felt lightheaded, warm and dizzy, felt like passing out. She went to the bathroom in order not to pass out in public. She stated the next thing she noticed was her boss stooping over her trying to wake her up. She stated her boss felt maybe she had a seizure. Patient states she experienced vertigo upon waking up. She mentioned her boss did not describe any tonic- clonic movement. Patient was brought to the emergency department for evaluation. Evaluation in the ED with head CT was negative, labs unremarkable, EKG and manager monitoring does not show any arrhythmia. Patient is placed under observation for further management. Home Medications: NK [No Home Meds] 12/04/23 - Past Medical/Surgical History -: Cerebral palsy -: Down syndrome -: Cholecystectomy - Family History Mother -: Other (see notes) (Epilepsy) - Social History Smoking Status: Never smoker Alcohol use: No CD- Drugs: No Place of Residence: Home Review of Systems Other: Patient reports headache and attributes the headache to the fall. She denies any shortness of breath but endorsed chest pain this morning. She reports an episode of palpitations this morning. She denies any fever or chills or diarrhea or nausea or vomiting or constipation. Except as documented, all other systems reviewed and negative. Physical Examination - Physical Exam General: Alert, In no apparent distress, Oriented x3 HEENT: Atraumatic, Mucous membr. moist/pink, Other (Strabismus), Sclerae nonicteric Neck: Supple, JVD not distended Respiratory: Clear to auscultation bilaterally, Normal air movement Cardiovascular: No edema, Normal S1 S2, Other (Regular rhythm, tachycardic) Capillary refill: <2 Seconds Gastrointestinal: Normal bowel sounds, Soft and benign, Non-distended, No tenderness Musculoskeletal: No swelling, No tenderness Integumentary: No rashes, No cyanosis Neurological: Normal speech, Normal strength at 5/5 x4 extr - Studies Laboratory Data (last 24 hrs) 12/04/23 12/04/23 12/04/23 12:53 12:53 12:53 WBC 9.80 Hgb 12.8 Hct 38.5 Plt Count 382 PT 11.3 INR 1.03 APTT 31.5 Sodium 138 Potassium 3.8 BUN 16 Creatinine 0.86 Glucose 92 Magnesium 1.9 Total Bilirubin 0.3 AST 12 L ALT 16 Alkaline Phosphatase 51 Assessment and Plan - Problems (Diagnosis) (1) Transient loss of consciousness Current Visit: Yes Status: Acute (2) History of cerebral palsy Current Visit: Yes Status: Acute (3) Down syndrome Current Visit: Yes Status: Acute (4) Acute cystitis without hematuria Current Visit: Yes Status: Acute - Plan Place patient under observation. Monitor for arrhythmias with telemetry. Patient with a history of cerebral palsy and family history of epilepsy. She is high risk for seizure disorder. Monitor for seizures. Neurochecks Neurology consult Obtain echocardiogram to evaluate the heart chambers and valves given history of cerebral palsy. Supportive measures with IV hydration Check orthostatic vitals. IV Rocephin for UTI. Follow urine culture. - Advance Directives Does patient have a Living Will: No Does patient have a Durable POA for Healthcare: No
[2023-12-04] MEDS: NA CHLORIDE 0.9% 1,000 ML IV SCH (17:56)
[2023-12-04 18:10] VITALS: BMI 30.9
[2023-12-04] MEDS: ATORVASTATIN 40 MG TAB PO SCH (20:00)
[2023-12-04 22:19] VITALS: O2SAT 100
[2023-12-05 03:39] LABS: Absolute Basophils 0.1 K/uL (0-0.5); Absolute Eosinophils 0.2 K/uL (0-0.5); Absolute Lymphocytes (CBC) 2.7 K/uL (0.7-4.9); Absolute Monocytes 0.6 K/uL (0.1-1.3); Absolute Neutrophil 4.7 K/uL (1.8-8.0); Basophils % 1.1 % (0-1.3); Eosinophils % 2.9 % (0-4.4); Hematocrit 34.4 % (36.0-45.0); Hemoglobin 11.6 g/dL (12.0-15.0); Lymphocytes % 32.6 % (15.3-44.8); MCH 30.9 pg (27.0-35.0); MCHC 33.6 g/dL (32.0-36.0); MCV 91.9 fL (80-100); MPV 8.7 fL (7.6-11.3); Monocytes % 7.2 % (3.3-12.3); Neutrophils % 56.2 % (41.7-73.7); Nucleated Red Blood Cells % 0.1 % (0-0); Platelets 317 thou/uL (152-406); RBC Red Blood Cell Count 3.74 M/uL (3.86-4.86); Red Cell Distribution Width 13.6 % (12.1-15.2)
[2023-12-05 04:00] LABS: Anion Gap 5.9 mEq/L (5.0-15.0); Potassium 3.9 mEq/L (3.5-5.1)
[2023-12-05] MEDS: POTASSIUM CL SA 10 MEQ TAB PO ONE (08:29)
[2023-12-05] MEDS: ENOXAPARIN 40 MG/0.4 ML SQ SCH (08:30)
[2023-12-05] MEDS: ASPIRIN EC 81 MG TAB PO SCH (08:30)
[2023-12-05] MEDS ORDERED: MORPHINE 4 MG/ML SYR IV PRN (08:38)
[2023-12-05] MEDS: CEFTRIAXONE 1,000 MG in NA CHLORIDE 0.9% 50 ML IVPB ONE (10:40)
--- NOTE | 2023-12-05 12:49 | P.DS ---
Admission Date: 12/04/23 Discharge Date: 12/05/23 Discharge Condition: FAIR Reason for Admission: 'I passed out' - Problems (1) Transient loss of consciousness Current Visit: Yes Status: Acute (2) History of cerebral palsy Current Visit: Yes Status: Acute (3) Down syndrome Current Visit: Yes Status: Acute (4) Acute cystitis without hematuria Current Visit: Yes Status: Acute Brief History of Present Illness: 38-year-old woman with a history of Down syndrome and cerebral palsy was brought to the emergency department because she passed out while at work. According to the patient she felt lightheaded, warm and dizzy, felt like passing out. She went to the bathroom in order not to pass out in public. She stated the next thing she noticed was her boss stooping over her trying to wake her up. She stated her boss felt maybe she had a seizure. Patient states she experienced vertigo upon waking up. She mentioned her boss did not describe any tonic- clonic movement. Patient was brought to the emergency department for evaluation. Evaluation in the ED with head CT was negative, labs unremarkable, EKG and cardiac rehabilitation specialist does not show any arrhythmia. Patient is placed under observation for further management. Hospital Course: Patient was placed under observation on the medical floor and hydrated with IV normal saline. She was asymptomatic during the hospital stay. mold stripper did not reveal any arrhythmia. Her blood pressure was borderline low but she was not orthostatic. Patient is symptoms could be related to borderline low blood pressure. Given that she has a history of Down syndrome and cerebral palsy, she is high risk for seizures. She is informed to follow-up with neurology Dr. Hendricks for further evaluation for epilepsy. Her urinalysis suggested the presence of UTI but urine culture did not show any bacterial growth. Patient was given a dose of IV Rocephin. Noticed mild hypocalcemia for which she is prescribed calcium supplementation plus vitamin D. Overall patient has been asymptomatic during the hospital stay. She is discharged to follow-up with Dr. Hendricks as outpatient for further evaluation. Vital Signs/Physical Exam: Temp Pulse Resp BP Pulse Ox 97.2 F 82 16 94/54 L 95 12/05/23 08:00 12/05/23 08:00 12/05/23 08:00 12/05/23 08:00 12/05/23 08:00 General: Alert, In no apparent distress, Oriented x3 HEENT: Mucous membr. moist/pink, Sclerae nonicteric Neck: Supple, JVD not distended Respiratory: Clear to auscultation bilaterally, Normal air movement Cardiovascular: No edema, Regular rate/rhythm, Normal S1 S2 Gastrointestinal: Normal bowel sounds, Soft and benign, Non-distended, No tenderness Musculoskeletal: No swelling Integumentary: No rashes, No cyanosis Neurological: Normal strength at 5/5 x4 extr Laboratory Data at Discharge: WBC 8.40 thou/uL (4.3-10.9) 12/05/23 02:54 Hgb 11.6 g/dL (12.0-15.0) L D 12/05/23 02:54 Hct 34.4 % (36.0-45.0) L 12/05/23 02:54 Plt Count 317 thou/uL (152-406) 12/05/23 02:54 PT 11.3 SECONDS (9.5-12.5) 12/04/23 12:53 INR 1.03 12/04/23 12:53 APTT 31.5 SECONDS (24.3-36.9) 12/04/23 12:53 Sodium 141 mEq/L (136-145) 12/05/23 02:54 Potassium 3.9 mEq/L (3.5-5.1) 12/05/23 02:54 BUN 15 mg/dL (7-18) 12/05/23 02:54 Creatinine 0.77 mg/dL (0.55-1.02) 12/05/23 02:54 Glucose 98 mg/dL (74-106) 12/05/23 02:54 Phosphorus 3.0 mg/dL (2.5-4.9) 12/05/23 02:54 Magnesium 2.0 mg/dL (1.6-2.4) 12/05/23 02:54 Total Bilirubin 0.3 mg/dL (0.2-1.0) 12/04/23 12:53 AST 12 U/L (15-37) L 12/04/23 12:53 ALT 16 U/L (13-56) 12/04/23 12:53 Alkaline Phosphatase 51 U/L (45-117) 12/04/23 12:53 Triglycerides 97 mg/dL (<150) 12/05/23 02:54 Cholesterol 120 mg/dL (<200) 12/05/23 02:54 HDL Cholesterol 31 mg/dL (40-60) L 12/05/23 02:54 Cholesterol/HDL Ratio 3.87 12/05/23 02:54 Home Medications: Calcium Carbonate/Vitamin D3 [Calcium 500-Vit D3 600 Caplet] 1 each PO BID #60 tab 12/05/23 New Medications: Calcium Carbonate/Vitamin D3 [Calcium 500-Vit D3 600 Caplet] 1 each PO BID #60 tab Diet: Regular Activity: Fall precautions Followup: Adriana Navarro MD [Primary Care Provider] - 1-2 Weeks Monroe Hendricks MD [ASSOCIATE-ACTIVE - CAN ADMIT] - 1-2 Weeks (Suspected seizure activity) Time spent managing pt's care (in minutes): 27
[2023-12-05 13:59] VITALS: BP 103/59; TEMP 97.9
--- NOTE | 2023-12-06 12:47 | EKG ---
Test Date: 2023-12-04 Test Time: 12:58:16 Net Coordinator: DHARMESH MEASUREMENT RESULTS: Intervals: Rate: 77 KS: 128 QRSD: 78 QT: 388 QTc: 439 [place]: P: 76 KS: 128 QRS: 74 T: 69 INTERPRETIVE STATEMENTS: Normal sinus rhythm with sinus arrhythmia Normal ECG Compared to ECG 09/08/2023 14:57:49 Sinus tachycardia no longer present Electronically Signed On 12-06-23 12:41:46 CDT by Facundo Georges
== END 2023-12-05 13:40 | disposition home health service (06) ==
LOC: ER 11:52 → ERHOLD 16:05 → 4TH 17:25
PROVIDERS: ADMIT Internal Medicine; ATTEND Internal Medicine
DX: R55 Syncope and collapse (principal); G80.9 Cerebral palsy, unspecified; Q90.9 Down syndrome, unspecified; N30.00 Acute cystitis without hematuria; E83.51 Hypocalcemia; R53.1 Weakness; R07.9 Chest pain, unspecified
CPT/HCPCS: 87088; 85025 ×2; 81001; 87086; 80048 ×2; 36415 ×2; 83735 ×2; 81025; 84100; 85610; 80061; 82947 ×2; 80076; 85730; 84443; 84484 ×3; 84439; 70450; 72125; 71045; 96360; 99285; J1650; J7030 ×3; J0696; 93005; G0378

== ENCOUNTER 2024-02-14 20:04 | Emergency (ER) | payer OTHER ==
[2024-02-14 21:21] LABS: Specific Gravity > 1.030 (1.005-1.030)
[2024-02-14 21:23] LABS: Specific Gravity > 1.030 (1.005-1.030); Sqamous Epithelial <5 /HPF (None Seen); Urine Bacteria None Seen /HPF (<20); Urine Bilirubin NEGATIVE (Negative); Urine Blood 3+ (OVER) (Negative); Urine Clarity Clear (Clear); Urine Color Light-Yellow (Yellow); Urine Culture Reflex Order NOT NEEDED; Urine Glucose NEGATIVE (Negative); Urine Ketones NEGATIVE (Negative); Urine Microscopic Reflex YN ORDER UMIC; Urine Mucus Slight /HPF (None Seen); Urine Nitrite NEGATIVE (Negative); Urine Protein TRACE (Negative); Urine RBC 21-50 /HPF (None Seen); Urine Urobilinogen Normal (Normal); Urine WBC <5 /HPF (<5); Urine WBC Clump Rare /HPF (None Seen)
[2024-02-14 21:31] LABS: Absolute Basophils 0.1 K/uL (0-0.5); Absolute Eosinophils 0.2 K/uL (0-0.5); Absolute Lymphocytes (CBC) 2.2 K/uL (0.7-4.9); Absolute Monocytes 0.6 K/uL (0.1-1.3); Basophils % 0.6 % (0-1.3); Eosinophils % 1.8 % (0-4.4); Hematocrit 36.5 % (36.0-45.0); Hemoglobin 12.3 g/dL (12.0-15.0); Lymphocytes % 21.5 % (15.3-44.8); MCH 30.6 pg (27.0-35.0); MCHC 33.6 g/dL (32.0-36.0); MCV 91.1 fL (80-100); MPV 8.4 fL (7.6-11.3); Monocytes % 6.1 % (3.3-12.3); Nucleated Red Blood Cells % 0.4 % (0-0); Platelets 291 thou/uL (152-406); RBC Red Blood Cell Count 4.01 M/uL (3.86-4.86); Red Cell Distribution Width 13.8 % (12.1-15.2)
[2024-02-14 21:33] LABS: PT Prothrombin Time 10.3 SECONDS (9.5-12.5); Protime INR 0.93
--- NOTE | 2024-02-14 21:41 | RAD REPORT ---
EXAM DESCRIPTION: US - Transvaginal Study Probe - 02/14/2024 8:44 pm CLINICAL HISTORY: DUB COMPARISON: No comparisons TECHNIQUE: Sonographic grayscale and color flow images of the pelvis were obtained. FINDINGS: The uterus is normal in size, shape and echotexture. The uterus measures 7.4 cm in length. Small nabothian cysts present. The endometrial stripe shows expansile appearance along the mid to fundal segments, up to 1.7 cm in t hickness. Heterogeneous hypoechoic appearance in this region. Increased vascularity is noted at the j unction of the mid to lower segment. Both ovaries are normal in size, shape and echotexture. The right ovary measures 3.7 x 2.8 x 3.4 cm. The left ovary measures 2.5 x 1.5 x 1.8 cm. Anechoic thin-walled dominant right ovarian 3.1 cm cyst /follicle. No adnexal masses. Normal Doppler blood flow was demonstrated to both ovaries. No significant pelvic ascites. IMPRESSION: Regionally thickened endometrium up to 1.7 cm in thickness along the mid to fundal segme nt, with heterogeneous hypoechoic appearance and focal vascularity at the caudal aspect of the segmen t. Please correlate with menstrual phase. If there is persistent clinical concern for a focal endomet rial lesion such as a polyp, consider additional evaluation by hysteroscopy and soft tissue sampling.
[2024-02-14 21:52] LABS: Albumin 3.4 g/dL (3.4-5.0); Albumin/Globulin Ratio 0.9 (1.1-1.8); Anion Gap 6.7 mEq/L (5.0-15.0); Bilirubin Total 0.3 mg/dL (0.2-1.0); Potassium 3.7 mEq/L (3.5-5.1); Protein, Total 7.4 g/dL (6.4-8.2)
[2024-02-14 21:57] LABS: Thyroid Stimulating Hormone 3.81 uIU/mL (0.358-3.740)
--- NOTE | 2024-02-14 23:14 | ER ---
Nurse's Notes [facility] Name: Vilma Paz Age: 38 yrs Sex: Female : 1985 Arrival Date: 02/14/2024 Time: 20:04 Bed 12 Private MD: Diagnosis: Abnormal uterine and vaginal bleeding, unspecified;Dysfunctional Uterine Bleeding Presentation: 02/13 20:47 Chief complaint: Patient states: I have had a heavy period for 15 days now. I have kd3 started getting dizzy and cold and clammy. There is no chance of . Coronavirus screen: Vaccine status: Patient reports being unvaccinated. Ebola Screen: No symptoms or risks identified at this time. Initial Sepsis Screen: Does the patient meet any 2 criteria? No. Patient's initial sepsis screen is negative. Does the patient have a suspected source of infection? No. Patient's initial sepsis screen is negative. Risk Assessment: Do you want to hurt yourself or someone else? Patient reports no desire to harm self or others. Onset of symptoms was February 14, 2024. 20:47 Method Of Arrival: Ambulatory kd3 20:47 Acuity: ERICA 3 kd3 Triage Assessment: 20:50 General: Appears uncomfortable, Behavior is calm, cooperative. Pain: Complains of pain kd3 in cramping. : Reports vaginal bleeding that is heavy flow. CAPONIZER: 20:50 LMP 02/14/2024, unknown kd3 Historical: - PMHx: 20:50 Cerebral Palsy; down syndrome; kd3 - PSHx: 20:50 Cholecystectomy; kd3 - Immunization history:: Adult Immunizations up to date. - Infectious Disease History:: Denies. - Social history:: Smoking status: Patient denies any tobacco usage or history of. - Family history:: not pertinent. Screenin:22 [facility] ED Fall Risk Assessment (Adult) History of falling in the last 3 months, ss including since admission No falls in past 3 months (0 pts). Abuse screen: Denies threats or abuse. Denies injuries from another. Nutritional screening: No deficits noted. Tuberculosis screening: Never had TB. Assessment: 23:22 General: Appears in no apparent distress. comfortable, Behavior is calm, cooperative. ss Neuro: Level of Consciousness is awake, alert, obeys commands, Oriented to person, place, time, situation. Respiratory: Airway is patent Respiratory effort is even, unlabored, Respiratory pattern is regular, symmetrical. EENT: Nares are clear. Derm: Skin is intact, is healthy with good turgor, Skin is dry, Skin is pink, warm \T\ dry. normal. Vital Signs: 20:47 BP 119 / 56; Pulse 72; Resp 16; Temp 97.9(O); Pulse Ox 100% ; Weight 87.09 kg; kd3 [place] Coma Score: 02/14 21:40 Eye Response: spontaneous(4). Motor Response: obeys commands(6). Verbal Response: sp4 oriented(5). Total: 15. ED Course: 02/13 20:06 Patient arrived in ED. mr 20:07 Winston Combs MD is Attending Physician. sp4 20:45 Transvaginal Study Probe In Process Unspecified. EDMS 20:50 Triage completed. kd3 20:50 Arm band placed on right wrist. kd3 21:16 T4 Free Sent. bc6 21:16 TSH Sent. bc6 21:16 PT-INR Sent. bc6 21:16 CBC with Diff Sent. bc6 21:16 CMP Sent. bc6 21:16 Initial lab(s) drawn, by me, sent to lab. Inserted saline lock: 22 gauge in right bc6 antecubital area, using aseptic technique. Blood collected. 23:12 Mariama Moreno MD is Referral Physician. sp4 23:22 Yolanda Mondragon, NARINDER is Primary Nurse. ss 23:22 Patient has correct armband on for positive identification. ss 23:22 No provider procedures requiring assistance completed. IV discontinued, intact, ss bleeding controlled, No redness/swelling at site. Pressure dressing applied. Administered Medications: No medications were administered Medication: 23:22 VIS not applicable for this client. ss Outcome: 23:13 Discharge ordered by . sp4 23:22 Discharged to home ambulatory, ss 23:22 Condition: good 23:22 Discharge instructions given to patient, Instructed on discharge instructions, follow up and referral plans. medication usage, Demonstrated understanding of instructions, follow-up care, medications, Prescriptions given X 1, 23:24 Patient left the ED. ss Signatures: Dispatcher [employer] [facility] Velia Joe, Reg Reg Yolanda Mondragon, RN RN ss Nilam Aguirre RN RN kd3 Vira Colin bc6 Winston Combs MD MD sp4
--- NOTE | 2024-02-14 23:14 | EDPHYS ---
Physician Documentation [facility] Name: Vilma Paz Age: 38 yrs Sex: Female : 1985 Arrival Date: 02/14/2024 Time: 20:04 Bed 12 Private MD: ED Physician Winston Combs HPI: 02/13 20:07 This 38 yrs old Other Race Female presents to ER via Unassigned with complaints of sp4 Vaginal Bleeding. 02/14 21:40 30-year-old female presents with vaginal bleeding starting February 01, 2024. Patient states sp4 this is highly unusual for her. Request evaluation for vaginal bleed. 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 - Infectious Disease History:: Denies. - Social history:: Smoking status: Patient denies any tobacco usage or history of. - Family history:: not pertinent. ROS: 02/14 21:40 Constitutional: Negative for fever, chills, and weight loss, positive for persistent sp4 vaginal bleed All other systems are negative, Exam: 21:40 Constitutional: This is a well developed, well nourished patient who is awake, alert, sp4 and in no acute distress. Head/Face: Normocephalic, atraumatic. Eyes: Pupils equal round and reactive to light, extra-ocular motions intact. Lids and lashes normal. Conjunctiva and sclera are not injected. Cornea within normal limits. Periorbital areas with no swelling, redness, or edema. ENT: Nares patent. No nasal discharge, no septal abnormalities noted. Tympanic membranes are normal and external auditory canals are clear. Oropharynx with no redness, swelling, or masses, exudates, or evidence of obstruction, uvula midline. Mucous membranes moist. Neck: Trachea midline, no thyromegaly or masses palpated, and no cervical lymphadenopathy. Supple, full range of motion without nuchal rigidity, or vertebral point tenderness. Chest/axilla: Normal chest wall appearance and motion. Nontender with no deformity. No lesions are appreciated. Cardiovascular: Regular rate and rhythm with a normal S1 and S2. No gallops, murmurs, or rubs. Normal PMI, no JVD. No pulse deficits. Respiratory: Lungs have equal breath sounds bilaterally, clear to auscultation and percussion. No rales, rhonchi or wheezes noted. No increased work of breathing, no retractions or nasal flaring. Abdomen/GI: Soft, with normal bowel sounds. No distension or tympany. No guarding or rebound. No evidence of tenderness throughout. Back: No spinal tenderness. No costovertebral tenderness. Skin: Warm, dry with normal turgor. Normal color with no rashes, no lesions, and no evidence of cellulitis. MS/ Extremity: Pulses equal, no cyanosis. Neurovascular intact. Full, normal range of motion. Neuro: Awake and alert, GCS 15, oriented to person, place, time, and situation. Cranial nerves II-XII grossly intact. Motor strength 5/5 in all extremities. Sensory grossly intact. Psych: Awake, alert, with orientation to person, place and time. Behavior, mood, and affect are within normal limits Vital Signs: 02/13 20:47 BP 119 / 56; Pulse 72; Resp 16; Temp 97.9(O); Pulse Ox 100% ; Weight 87.09 kg; kd3 [place] Coma Score: 02/14 21:40 Eye Response: spontaneous(4). Motor Response: obeys commands(6). Verbal Response: sp4 oriented(5). Total: 15. MDM: 02/13 20:14 Patient medically screened. sp4 02/14 21:40 Differential diagnosis: shyam infection, cervicitis, dysmenorrhea, endometriosis. sp4 Data reviewed: vital signs, nurses notes, lab test result(s), radiologic studies, ultrasound. Consideration of Admission/Observation Escalation of care including admission/observation considered. ED course: EXAM DESCRIPTION: US - Transvaginal Study Probe - 02/14/2024 8:44 pm CLINICAL HISTORY: DUB COMPARISON: No comparisons TECHNIQUE: Sonographic grayscale and color flow images of the pelvis were obtained. FINDINGS: The uterus is normal in size, shape and echotexture. The uterus measures 7.4 cm in length. Small nabothian cysts present. The endometrial stripe shows expansile appearance along the mid to fundal segments, up to 1.7 cm in thickness. Heterogeneous hypoechoic appearance in this region. Increased vascularity is noted at the junction of the mid to lower segment. Both ovaries are normal in size, shape and echotexture. The right ovary measures 3.7 x 2.8 x 3.4 cm. The left ovary measures 2.5 x 1.5 x 1.8 cm. Anechoic thin-walled dominant right ovarian 3.1 cm cyst/follicle. No adnexal masses. Normal Doppler blood flow was demonstrated to both ovaries. No significant pelvic ascites. IMPRESSION: Regionally thickened endometrium up to 1.7 cm in thickness along the mid to fundal segment, with heterogeneous hypoechoic appearance and focal vascularity at the caudal aspect of the segment. Please correlate with menstrual phase. If there is persistent clinical concern for a focal endometrial lesion such as a polyp, consider additional evaluation by hysteroscopy and soft tissue sampling. Signed By: Jeffrey Mendoza. 02/13 20:20 Order name: CBC with Diff; Complete Time: 23:04 sp4 02/13 20:20 Order name: CMP; Complete Time: 23:04 sp4 02/13 20:20 Order name: Test, Urine; Complete Time: 23:04 sp4 02/13 20:20 Order name: Urinalysis w/ reflexes; Complete Time: 23:04 sp4 02/13 20:20 Order name: PT-INR; Complete Time: 23:04 sp4 02/13 20:20 Order name: TSH; Complete Time: 23:04 sp4 02/13 20:20 Order name: T4 Free; Complete Time: 23:04 sp4 02/13 20:45 Order name: Transvaginal Study Probe; Complete Time: 23:04 EDMS 02/13 20:20 Order name: IV Saline Lock; Complete Time: 21:16 sp4 02/13 20:20 Order name: Labs collected and sent; Complete Time: 21:16 sp4 Administered Medications: No medications were administered Disposition Summary: 02/14/24 23:13 Discharge Ordered Notes: Location: Home sp4 Problem: new sp4 Symptoms: have improved sp4 Condition: Stable sp4 Diagnosis - Abnormal uterine and vaginal bleeding, unspecified sp4 - Dysfunctional Uterine Bleeding sp4 Followup: sp4 - With: Mariama Moreno MD - When: 7 - 10 days - Reason: Recheck today's complaints Discharge Instructions: - Discharge Summary Sheet sp4 - Dysfunctional Uterine Bleeding sp4 Forms: - Patient Portal Instructions sp4 Prescriptions: - Sprintec (28) 0.25-35 mg-mcg Oral tablet - take 1 tablet ORAL route daily Take as directed; 1 Pack; Refills: 0, Product sp4 Selection Permitted Signatures: Dispatcher [employer] Nilam Hunter RN RN kd3 Winston Combs MD MD sp4 Corrections: (The following items were deleted from the chart) 02/13 20:21 20:21 PROTIME (+INR)+COAG.LAB.BRZ ordered. EDMS EDMS 20:21 20:21 THYROID STIMULAT HORMONE+C.LAB.BRZ ordered. EDMS EDMS 20:21 20:21 T4 FREE+C.LAB.BRZ ordered. EDMS EDMS 20:45 20:21 Pelvis Complete+US.RAD.BRZ ordered. EDMS EDMS
[2024-02-14 23:38] VITALS: BP 119/56; TEMP 97.9; O2SAT 100
== END 2024-02-14 23:24 | disposition home or self-care (01) ==
LOC: ER 20:04
DX: N93.8 Other specified abnormal uterine and vaginal bleeding (principal); G80.9 Cerebral palsy, unspecified; Q90.9 Down syndrome, unspecified
CPT/HCPCS: 36415; 76830; 80053; 81001; 81025; 84439; 84443; 85025; 85610; 99284

== ENCOUNTER 2024-05-01 16:27 | Emergency (ER) | payer OTHER ==
--- NOTE | 2024-05-01 16:42 | EDPHYS ---
Physician Documentation [facility] Name: Vilma Paz Age: 38 yrs Sex: Female : 1985 Arrival Date: 05/01/2024 Time: 16:27 Bed 11 Private MD: ED Physician Margo Park HPI: 05/01 16:45 This 38 yrs old Female presents to ER via Ambulatory with complaints of Arm Injury. sb4 16:45 Patient states that she was trying to pull a heavy box towards her at work but her arm sb4 ended up stretching instead of pulling the box. She continue to work after the fact. She is now complaining of pain in her right shoulder, bicep, axillary region. She states that she has injured this area previously and thinks she flared it up. She never received a formal diagnosis earlier. 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 - Infectious Disease History:: Denies. - Social history:: Smoking status: Patient denies any tobacco usage or history of. ROS: 16:45 Constitutional: Negative for fever, chills, and weight loss, sb4 16:45 MS/extremity: Positive for injury or acute deformity, decreased range of motion, pain, of the anterior aspect of right shoulder, right axilla and right bicep, 16:45 All other systems are negative, Exam: 16:45 Constitutional: This is a well developed, well nourished patient who is awake, alert, sb4 and in no acute distress. Head/Face: Normocephalic, atraumatic. Eyes: Extra-ocular motions intact. Periorbital areas with no swelling, redness, or edema. ENT: Mucous membranes moist. 16:45 Musculoskeletal/extremity: ROM: limited active range of motion due to pain, limited passive range of motion due to pain, in the right arm, Circulation is intact in all extremities. Pulses: are normal with no appreciated deficits, Sensation intact. Vital Signs: 16:32 BP 111 / 80; Pulse 79; Resp 16; Temp 98.6; Pulse Ox 99% ; Weight 87.09 kg; Height 5 ft. db 6 in. ; 17:03 BP 112 / 77; Pulse 73; Resp 16; Temp 97.5(TE); Pulse Ox 100% on R/A; tl4 16:32 Body Mass Index 30.99 (87.09 kg, 167.64 cm) db MDM: 16:32 Patient medically screened. sb4 16:45 Data reviewed: vital signs, nurses notes, and as a result, I will discharge patient. sb4 Test considered but Not performed: X-ray: Not indicated, clinical diagnosis of muscle strain. Counseling: I had a detailed discussion with the patient and/or guardian regarding the historical points, exam findings, and any diagnostic results supporting the discharge/admit diagnosis, the need for outpatient follow up, a orthopedic surgeon, if symptoms persist, to return to the emergency department if symptoms worsen or persist or if there are any questions or concerns that arise at home. 05/01 16:44 Order name: Shoulder Immobilizer; Complete Time: 17:02 sb4 Administered Medications: 16:56 Drug: Gabapentin PO 300 mg PO once Route: PO; tl4 17:12 Follow up: Response: No adverse reaction tl4 16:57 Drug: Ketorolac IM 30 mg IM once Route: IM; Site: left deltoid; tl4 17:12 Follow up: Response: No adverse reaction tl4 Disposition Summary: 05/01/24 16:42 Discharge Ordered Notes: Location: Home sb4 Problem: new sb4 Symptoms: have improved sb4 Condition: Stable sb4 Diagnosis - Strain of other muscles, fascia and tendons at shoulder and upper arm level, right sb4 arm Followup: sb4 - With: Rolando Dunn MD - When: As needed - Reason: Further diagnostic work-up, Recheck today's complaints, Re-evaluation by your physician Discharge Instructions: - Discharge Summary Sheet sb4 - Muscle Strain, [id number] sb4 Forms: - Patient Portal Instructions sb4 - Leadership Thank You Letter sb4 Prescriptions: - Ibuprofen 800 mg Oral Tablet - take 1 tablet ORAL route every 8 hours As needed take with food; 30 tablet; sb4 Refills: 0, Product Selection Permitted - Prednisone 20 mg Oral Tablet - take 1 tablet ORAL route once daily for 5 days; 5 tablet; Refills: 0, Product sb4 Selection Permitted - Cyclobenzaprine 5 mg Oral Tablet - take 1 tablet ORAL route 3 times per day As needed; 15 tablet; Refills: 0, sb4 Product Selection Permitted Signatures: Suzie Taveras RN RN Belia Hall PA-C PA-C sb4 Demetri Gleason RN RN tl4 Corrections: (The following items were deleted from the chart) 16:44 16:42 Sling ordered. sb4 sb4
--- NOTE | 2024-05-01 16:42 | ER ---
Nurse's Notes [facility] Name: Vilma Paz Age: 38 yrs Sex: Female : 1985 Arrival Date: 05/01/2024 Time: 16:27 Bed 11 Private MD: Diagnosis: Strain of other muscles, fascia and tendons at shoulder and upper arm level, right arm Presentation: 05/01 16:32 Chief complaint: Patient states: RIGHT ARM PAIN AFTER YANKING ON A BOX AT WORK TODAY db AROUND 1230. Coronavirus screen: Client denies travel out of the [place] in the last 14 days. Ebola Screen: Patient negative for fever greater than or equal to 101.5 degrees Fahrenheit, and additional compatible Ebola Virus Disease symptoms Patient denies exposure to infectious person. Patient denies travel to an Ebola-affected area in the 21 days before illness onset. No symptoms or risks identified at this time. Initial Sepsis Screen: Does the patient meet any 2 criteria? No. Patient's initial sepsis screen is negative. Does the patient have a suspected source of infection? No. Patient's initial sepsis screen is negative. Risk Assessment: Do you want to hurt yourself or someone else? Patient reports no desire to harm self or others. Onset of symptoms was May 01, 2024 at 12:30. 16:32 Method Of Arrival: Ambulatory db 16:32 Acuity: ERICA 4 db Triage Assessment: 16:34 General: Appears in no apparent distress. comfortable, Behavior is calm, cooperative. db Pain: Complains of pain in right arm. Neuro: Level of Consciousness is awake, alert, obeys commands, Oriented to person, place, time, situation. Musculoskeletal: Circulation, motion, and sensation intact. Capillary refill < 3 seconds, Range of motion: limited in right shoulder. 17:06 Injury Description: blunt. 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 - Infectious Disease History:: Denies. - Social history:: Smoking status: Patient denies any tobacco usage or history of. Screenin:02 [facility] ED Fall Risk Assessment (Adult) History of falling in the last 3 months, tl4 including since admission No falls in past 3 months (0 pts) Confusion or Disorientation No (0 pts) Intoxicated or Sedated No (0 pts) Impaired Gait No (0 pts) Mobility Assist Device Used No (0 pt) Altered Elimination No (0 pt) Score/Fall Risk Level 0 - 2 = Low Risk Oriented to surroundings, Maintained a safe environment, Educated pt \T\ family on fall prevention, incl call for assistance when getting out of bed, Assessed \T\ reinforced patient's understanding of fall precautions. Abuse screen: Denies threats or abuse. Denies injuries from another. Nutritional screening: No deficits noted. Tuberculosis screening: No symptoms or risk factors identified. Assessment: 16:51 General: Appears in no apparent distress. Behavior is calm, cooperative. Pain: tl4 Complains of pain in right arm. Neuro: Level of Consciousness is awake, alert, obeys commands, Oriented to person, place, time, situation, Moves all extremities. Full function. Cardiovascular: Capillary refill < 3 seconds Patient's skin is warm and dry. Respiratory: Airway is patent Respiratory effort is even, unlabored, Respiratory pattern is regular, symmetrical. GI: No signs and/or symptoms were reported involving the gastrointestinal system. : No signs and/or symptoms were reported regarding the genitourinary system. EENT: No signs and/or symptoms were reported regarding the EENT system. Derm: No signs and/or symptoms reported regarding the dermatologic system. Musculoskeletal: Reports pain in right arm. Vital Signs: 16:32 BP 111 / 80; Pulse 79; Resp 16; Temp 98.6; Pulse Ox 99% ; Weight 87.09 kg; Height 5 ft. db 6 in. ; 17:03 BP 112 / 77; Pulse 73; Resp 16; Temp 97.5(TE); Pulse Ox 100% on R/A; tl4 16:32 Body Mass Index 30.99 (87.09 kg, 167.64 cm) db ED Course: 16:29 Patient arrived in ED. mr 16:29 [facility] Sultana [facility]. sb4 16:29 Margo Park MD is Attending Physician. sb4 16:34 Triage completed. db 16:35 Arm band placed on left wrist. Patient placed in an exam room. db 16:42 Rolando Dunn MD is Referral Physician. sb4 16:51 Demetri Gleason, RN is Primary Nurse. tl4 17:03 Patient has correct armband on for positive identification. Bed in low position. Call tl4 light in reach. Side rails up X 1. Adult w/ patient. Provided Education on: call estrada. 17:03 No provider procedures requiring assistance completed. Patient did not have IV access tl4 during this emergency room visit. Shoulder immobilizer applied on right shoulder. Administered Medications: 16:56 Drug: Gabapentin PO 300 mg PO once Route: PO; tl4 17:12 Follow up: Response: No adverse reaction tl4 16:57 Drug: Ketorolac IM 30 mg IM once Route: IM; Site: left deltoid; tl4 17:12 Follow up: Response: No adverse reaction tl4 Medication: 17:02 VIS not applicable for this client. tl4 Outcome: 16:42 Discharge ordered by MD. sb4 17:12 Discharged to home ambulatory, tl4 17:12 Condition: stable 17:12 Discharge instructions given to patient, family, Instructed on discharge instructions, follow up and referral plans. medication usage, splint care Demonstrated understanding of instructions, follow-up care, medications, splint care, Prescriptions given X 3, 17:17 Patient left the ED. tl4 Signatures: Velia Joe, Bryan Adams mr Suzie Taveras, RN RN Belia Hall, PA-C PA-C sb4 Demetri Gleason, RN RN tl4
[2024-05-01] MEDS ORDERED: KETOROLAC 30 MG/ML INJ ONE (16:55)
[2024-05-01] MEDS ORDERED: GABAPENTIN 300 MG CAP ONE (16:55)
[2024-05-01 17:32] VITALS: BP 112/77; TEMP 97.5; O2SAT 100
== END 2024-05-01 17:17 | disposition home or self-care (01) ==
LOC: ER 16:27
DX: S46.811A Strain of other muscles, fascia and tendons at shoulder and upper arm level, right arm, initial encounter (principal); G80.9 Cerebral palsy, unspecified; Q90.9 Down syndrome, unspecified
CPT/HCPCS: 96372; 99284

== ENCOUNTER 2024-06-04 18:23 | Emergency (ER) | payer OTHER ==
[2024-06-04] MEDS ORDERED: ACETAMINOPHEN 500 MG TAB ONE (18:59)
[2024-06-04] MEDS ORDERED: ONDANSETRON 4 MG (ODT) TAB ONE (18:59)
[2024-06-04 19:38] LABS: SARS-CoV-2 Antigen CONTROL BLUE LINE VIS/BG OK; SARS-CoV-2 Antigen Rapid Res Negative (Negative)
[2024-06-04 20:39] LABS: Specific Gravity 1.011 (1.005-1.030); Sqamous Epithelial <5 /HPF (None Seen); Urine Bacteria <20 /HPF (<20); Urine Bilirubin NEGATIVE (Negative); Urine Blood Negative (Negative); Urine Clarity Clear (Clear); Urine Color Colorless (Yellow); Urine Glucose NEGATIVE (Negative); Urine Ketones NEGATIVE (Negative); Urine Microscopic Reflex YN ORDER UMIC; Urine Mucus Slight /HPF (None Seen); Urine Nitrite NEGATIVE (Negative); Urine Protein NEGATIVE (Negative); Urine RBC <5 /HPF (None Seen); Urine Urobilinogen Normal (Normal); Urine WBC <5 /HPF (<5)
[2024-06-04 20:43] LABS: Specific Gravity 1.011 (1.005-1.030)
--- NOTE | 2024-06-04 20:47 | ER ---
Nurse's Notes [facility] Name: Vilma Paz Age: 38 yrs Sex: Female : 1985 Arrival Date: 06/04/2024 Time: 18:23 Bed 5 Private MD: Diagnosis: Nausea;Otitis media in diseases classified elsewhere, right ear;Acute pharyngitis, unspecified Presentation: 06/04 18:36 Chief complaint: Right ear pain, body aches, dizziness, sore throat, headache, and N/D hb x 9 days. Coronavirus screen: Client presents with at least one sign or symptom that may indicate coronavirus-19. Provider contacted for isolation considerations. Ebola Screen: No symptoms or risks identified at this time. Initial Sepsis Screen: Does the patient meet any 2 criteria? No. Patient's initial sepsis screen is negative. Does the patient have a suspected source of infection? No. Patient's initial sepsis screen is negative. Risk Assessment: Do you want to hurt yourself or someone else? Patient reports no desire to harm self or others. Onset of symptoms was May 26, 2024. 18:36 Method Of Arrival: Ambulatory hb 18:36 Acuity: ERICA 3 hb Historical: - Allergies: 18:37 No Known Allergies; hb - Home Meds: 18:37 None [Active]; hb - PMHx: 18:37 Cerebral Palsy; down syndrome; hb - PSHx: 18:37 Cholecystectomy; hb - Immunization history:: Adult Immunizations up to date. - Infectious Disease History:: Denies. - Social history:: Smoking status: Patient denies any tobacco usage or history of. Screenin:00 [facility] ED Fall Risk Assessment (Adult) History of falling in the last 3 months, ha1 including since admission No falls in past 3 months (0 pts) Confusion or Disorientation No (0 pts) Intoxicated or Sedated No (0 pts) Impaired Gait No (0 pts) Mobility Assist Device Used No (0 pt) Altered Elimination No (0 pt) Score/Fall Risk Level 0 - 2 = Low Risk Oriented to surroundings, Maintained a safe environment, Educated pt \T\ family on fall prevention, incl call for assistance when getting out of bed, Hourly rounding (assess needs \T\ fall precautionary measures) done. Abuse screen: Denies threats or abuse. Denies injuries from another. Nutritional screening: No deficits noted. Tuberculosis screening: No symptoms or risk factors identified. Assessment: 21:00 Reassessment: Patient and/or family updated on plan of care and expected duration. Pain ha1 level reassessed. Patient is alert, oriented x 3, equal unlabored respirations, skin warm/dry/pink. Patient states feeling better. Patient states symptoms have improved. General: Appears comfortable, Behavior is calm, cooperative. Pain: Complains of pain in pain all over and bilateral ears. Neuro: Level of Consciousness is awake, alert, obeys commands, Oriented to person, place, time, situation. Vital Signs: 18:36 BP 125 / 93; Pulse 99; Resp 18; Temp 99.2(O); Pulse Ox 99% on R/A; Weight 88.45 kg; hb Height 5 ft. 7 in. ; Pain 5/10; 20:20 BP 107 / 75; Pulse 85; Resp 17 S; Pulse Ox 98% on R/A; ha1 21:00 BP 102 / 78; Pulse 98; Resp 18 S; Temp 98.4(O); Pulse Ox 99% on R/A; ha1 18:36 Body Mass Index 30.54 (88.45 kg, 170.18 cm) hb 18:36 Pain Scale: Adult hb ED Course: 18:25 Patient arrived in ED. mr 18:30 Fran Burleson PA is PHCP. cp 18:30 Margo Park MD is Attending Physician. cp 18:37 Triage completed. hb 18:37 Arm band placed on. hb 19:15 Influenza Screen (a \T\ B) Sent. iw 19:15 Strep Sent. iw 19:15 SARS RAPID Sent. iw 19:20 Patient has correct armband on for positive identification. Placed in gown. Bed in low ha1 position. Call light in reach. Side rails up X 1. 19:20 Provided Education on: plan of care . ha1 21:15 No provider procedures requiring assistance completed. ha1 21:15 Patient did not have IV access during this emergency room visit. ha1 Administered Medications: 19:02 Drug: Ondansetron PO 4 mg PO once Route: PO; iw 20:26 Follow up: Response: No adverse reaction; Nausea is decreased al5 19:02 Drug: Acetaminophen PO 1000 mg PO once Route: PO; iw 20:26 Follow up: Response: No adverse reaction; Pain is decreased al5 Medication: 21:00 VIS not applicable for this client. ha1 Outcome: 20:46 Discharge ordered by MD. chan 21:15 Patient left the ED. ha1 21:15 Discharged to home ambulatory, ha1 21:15 Condition: stable 21:15 Discharge instructions given to patient, Instructed on discharge instructions, follow up and referral plans. medication usage, Demonstrated understanding of instructions, follow-up care, medications, Prescriptions given X 3, Signatures: Velia Joe, Reg Reg mr Shayla Zacarias, RN RN iw Fran Burleson PA PA cp Cata Ellis RN RN Terra Moser RN RN ha1 Savannah Keller RN RN al5 Corrections: (The following items were deleted from the chart) 21:23 21:22 Patient left the ED. ha1 ha1
--- NOTE | 2024-06-04 20:47 | EDPHYS ---
Physician Documentation [facility] Name: Vilma Paz Age: 38 yrs Sex: Female : 1985 Arrival Date: 06/04/2024 Time: 18:23 Bed 5 Private MD: ED Physician Margo Park HPI: 06/04 18:55 This 38 yrs old Female presents to ER via Ambulatory with complaints of Pain All Over. cp 18:55 The patient presents with sore throat. cp 18:55 The patient presents with pain, that is acute. The complaints affect the right ear. cp Associated signs and symptoms: Pertinent positives: dizziness, headache, nausea, diarrhea, Pertinent negatives: fever, abdominal pain, active vomiting. Historical: - Allergies: 18:37 No Known Allergies; hb - Home Meds: 18:37 None [Active]; hb - PMHx: 18:37 Cerebral Palsy; down syndrome; hb - PSHx: 18:37 Cholecystectomy; hb - Immunization history:: Adult Immunizations up to date. - Infectious Disease History:: Denies. - Social history:: Smoking status: Patient denies any tobacco usage or history of. ROS: 19:00 Constitutional: Negative for fever, poor PO intake, cp 19:00 Respiratory: Negative for cough, shortness of breath, wheezing, cp Exam: 19:05 Constitutional: The patient appears in no acute distress, alert, awake, non-toxic, well cp developed, well nourished, 19:05 Head/Face: Normocephalic, atraumatic. cp 19:05 Eyes: Periorbital structures: appear normal, Conjunctiva: normal, no exudate, no injection, Sclera: no appreciated abnormality, Lids and lashes: appear normal, bilaterally, 19:05 ENT: External ear(s): pain with movement, of the right ear canal, Ear canal(s): swelling, of the right canal, mild, TM's: erythema, that is mild, on the right, Nose: is normal, Mouth: Lips: moist, Oral mucosa: moist, Posterior pharynx: Airway: no evidence of obstruction, patent, Tonsils: with erythema, erythema, that is mild, exudate, is not appreciated, Voice: is normal, 19:05 Neck: ROM/movement: is normal, is supple, no meningismus, no nuchal rigidity, Lymph nodes: lymphadenopathy is appreciated, anterior cervical nodes, 19:05 Chest/axilla: Inspection: normal, 19:05 Cardiovascular: Rate: normal, Rhythm: regular, 19:05 Respiratory: the patient does not display signs of respiratory distress, Respirations: normal, no use of accessory muscles, no retractions, labored breathing, is not present, Breath sounds: are clear throughout, no decreased breath sounds, no stridor, no wheezing, 19:05 Abdomen/GI: Inspection: abdomen appears normal, Palpation: abdomen is soft and non-tender, in all quadrants, Vital Signs: 18:36 BP 125 / 93; Pulse 99; Resp 18; Temp 99.2(O); Pulse Ox 99% on R/A; Weight 88.45 kg; hb Height 5 ft. 7 in. ; Pain 5/10; 20:20 BP 107 / 75; Pulse 85; Resp 17 S; Pulse Ox 98% on R/A; ha1 21:00 BP 102 / 78; Pulse 98; Resp 18 S; Temp 98.4(O); Pulse Ox 99% on R/A; ha1 18:36 Body Mass Index 30.54 (88.45 kg, 170.18 cm) hb 18:36 Pain Scale: Adult hb MDM: 18:30 Patient medically screened. 19:00 Differential diagnosis: otitis media, otitis externa, ruptured TM, pharyngitis, cp tonsillitis, uvulitis, strep throat. 20:45 Data reviewed: vital signs, nurses notes, lab test result(s), and as a result, I will cp discharge patient. 20:45 I considered the following discharge prescriptions or medication management in the emergency department Medications were administered in the Emergency Department. See MAR. Counseling: I had a detailed discussion with the patient and/or guardian regarding the historical points, exam findings, and any diagnostic results supporting the discharge/admit diagnosis, lab results, to return to the emergency department if symptoms worsen or persist or if there are any questions or concerns that arise at home. Response to treatment: the patient's symptoms have markedly improved after treatment, and as a result, I will discharge patient. 06/04 18:53 Order name: Urinalysis w/ reflexes; Complete Time: 20:43 06/04 18:53 Order name: Test, Urine 06/04 18:53 Order name: SARS RAPID; Complete Time: 19:55 cp 06/04 18:53 Order name: Strep; Complete Time: 19:55 cp 06/04 18:53 Order name: Influenza Screen (a \T\ B); Complete Time: 19:55 cp 06/04 19:41 Order name: Throat Culture EDMS Administered Medications: 19:02 Drug: Ondansetron PO 4 mg PO once Route: PO; iw 20:26 Follow up: Response: No adverse reaction; Nausea is decreased al5 19:02 Drug: Acetaminophen PO 1000 mg PO once Route: PO; iw 20:26 Follow up: Response: No adverse reaction; Pain is decreased al5 Disposition: 06/05 18:30 Chart complete. cp Disposition Summary: 06/04/24 20:46 Discharge Ordered Notes: Location: Home cp Problem: new cp Symptoms: have improved cp Condition: Stable cp Diagnosis - Nausea cp - Otitis media in diseases classified elsewhere, right ear cp - Acute pharyngitis, unspecified cp Followup: cp - With: Private Physician - When: 2 - 3 days - Reason: Recheck today's complaints Discharge Instructions: - Discharge Summary Sheet cp - Otitis Media, Adult cp - Nausea, Adult cp - Pharyngitis cp - Sore Throat cp Forms: - Medication Reconciliation Form cp - Antibiotic Education cp - Prescription Opioid Use cp - Patient Portal Instructions cp - Leadership Thank You Letter cp Prescriptions: - Amoxicillin 875 mg Oral Tablet - take 1 tablet ORAL route every 12 hours for 10 days; 20 tablet; Refills: 0, cp Product Selection Permitted - Ibuprofen 800 mg Oral Tablet - take 1 tablet ORAL route every 8 hours As needed take with food; 30 tablet; cp Refills: 0, Product Selection Permitted - Zofran 4 mg Oral Tablet - take 1 tablet ORAL route every 12 hours As needed; 20 tablet; Refills: 0, cp Product Selection Permitted Signatures: Dispatcher [employer] Shayla Lechuga RN RN iw Fran Burleson PA PA cp Baxter, Heather, RN RN Savannah Keller RN al5
[2024-06-04 21:26] VITALS: BP 125/93; TEMP 99.2; O2SAT 99
== END 2024-06-04 21:22 | disposition home or self-care (01) ==
LOC: ER 18:23
DX: H66.91 Otitis media, unspecified, right ear (principal); J02.9 Acute pharyngitis, unspecified; Z11.52 Encounter for screening for COVID-19
CPT/HCPCS: 87070; 81001; 36415; 81025; 87081; 87804 ×2; 99284; 87811; Q0162

== ENCOUNTER 2024-10-13 15:20 | Emergency (ER) | payer OTHER ==
[2024-10-13] MEDS ORDERED: ONDANSETRON 4 MG/2 ML VIAL ONE (15:43)
[2024-10-13] MEDS ORDERED: MORPHINE 4 MG/ML SYR ONE (15:43)
[2024-10-13 15:54] LABS: Absolute Basophils 0.1 K/uL (0-0.5); Absolute Eosinophils 0.1 K/uL (0-0.5); Absolute Lymphocytes (CBC) 1.5 K/uL (0.7-4.9); Absolute Monocytes 0.6 K/uL (0.1-1.3); Absolute Neutrophil 5.1 K/uL (1.8-8.0); Basophils % 1.5 % (0-1.3); Eosinophils % 1.6 % (0-4.4); Hematocrit 39.6 % (36.0-45.0); Hemoglobin 13.2 g/dL (12.0-15.0); Lymphocytes % 19.9 % (15.3-44.8); MCH 29.5 pg (27.0-35.0); MCHC 33.4 g/dL (32.0-36.0); MCV 88.4 fL (80-100); MPV 8.2 fL (7.6-11.3); Monocytes % 7.7 % (3.3-12.3); Neutrophils % 69.3 % (41.7-73.7); Nucleated Red Blood Cells % 0.1 % (0-0); Platelets 355 thou/uL (152-406); RBC Red Blood Cell Count 4.48 M/uL (3.86-4.86); Red Cell Distribution Width 14.3 % (12.1-15.2)
[2024-10-13 15:59] LABS: PT Prothrombin Time 11.2 SECONDS (9.4-12.5); Protime INR 1.07
[2024-10-13 16:11] LABS: Anion Gap 6.1 mEq/L (5.0-15.0); BUN Blood Urea Nitrogen 14 mg/dL (7-18); Bicarbonate 28 mEq/L (21-32); Glomerular Filtration Rate 99 ml/min (=/>90); Glucose Level 94 mg/dL (74-106); NT PRO-BNP 22 pg/mL (<125); Potassium 4.1 mEq/L (3.5-5.1); Sodium Level 137 mEq/L (136-145); Troponin High Sensitivity < 3.0 pg/mL (<58.9)
[2024-10-13] MEDS ORDERED: NA CHLORIDE 0.9% 500 ML ONE (16:22)
--- NOTE | 2024-10-13 16:30 | RAD REPORT ---
Procedure: Chest Single View HISTORY: Chest pain COMPARISON: 2023 FINDINGS: The lungs appear clear of acute infiltrate. No significant pleural effusion noted. The heart is normal size. IMPRESSION: No acute abnormality is displayed.
--- NOTE | 2024-10-13 16:33 | ER ---
Nurse's Notes [facility] Name: Vilma Paz Age: 39 yrs Sex: Female : 1985 Arrival Date: 10/13/2024 Time: 15:20 Bed 13 Private MD: Diagnosis: Chest pain, unspecified Presentation: 10/13 15:20 Chief complaint: EMS states: SHARP CHEST PAIN X 5 DAYS WORSE PRIOR TO EMS ARRIVAL. PAIN db RADIATING INTO LEFT SHOULDER. EMS GAVE 324 MG ASPIRIN. Coronavirus screen: Client denies travel out of the [place] in the last 14 days. At this time, the client does not indicate any symptoms associated with coronavirus-19. Ebola Screen: Patient negative for fever greater than or equal to 101.5 degrees Fahrenheit, and additional compatible Ebola Virus Disease symptoms Patient denies exposure to infectious person. Patient denies travel to an Ebola-affected area in the 21 days before illness onset. No symptoms or risks identified at this time. Initial Sepsis Screen: Does the patient meet any 2 criteria? No. Patient's initial sepsis screen is negative. Does the patient have a suspected source of infection? No. Patient's initial sepsis screen is negative. Risk Assessment: Do you want to hurt yourself or someone else? Patient reports no desire to harm self or others. Onset of symptoms was October 13, 2024. 15:20 Method Of Arrival: EMS: [facility] db 15:20 Acuity: ERICA 2 db Triage Assessment: 15:36 General: Appears in no apparent distress. comfortable, Behavior is calm, cooperative. db Pain: Complains of pain in chest Pain radiates to left arm. Neuro: Level of Consciousness is awake, alert, obeys commands, Oriented to person, place, time, situation. Cardiovascular: Reports chest pain. Respiratory: Airway is patent Respiratory effort is even, unlabored, Respiratory pattern is regular, symmetrical. 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 - Infectious Disease History:: Denies. - Social history:: Smoking status: Patient denies any tobacco usage or history of. Screenin:54 [facility] ED Fall Risk Assessment (Adult) History of falling in the last 3 months, db including since admission No falls in past 3 months (0 pts) Confusion or Disorientation No (0 pts) Intoxicated or Sedated No (0 pts) Impaired Gait No (0 pts) Mobility Assist Device Used No (0 pt) Altered Elimination No (0 pt) Score/Fall Risk Level 0 - 2 = Low Risk Oriented to surroundings, Maintained a safe environment. Abuse screen: Denies threats or abuse. Denies injuries from another. Nutritional screening: No deficits noted. Tuberculosis screening: No symptoms or risk factors identified. Assessment: 15:37 Reassessment: SEE TRIAGE FOR INITIAL ASSESSMENT. db 15:40 General: Appears in no apparent distress. comfortable, Behavior is calm, cooperative. db Pain: Complains of pain in chest Pain began gradually. Neuro: Level of Consciousness is awake, alert, obeys commands, Oriented to person, place, time, situation. 16:25 Reassessment: Patient appears in no apparent distress at this time. Patient and/or db family updated on plan of care and expected duration. Pain level reassessed. Patient is alert, oriented x 3, equal unlabored respirations, skin warm/dry/pink. PATIENT BP DROPPED TO 93/52 AFTER MORPHINE ADMINISTRATION. NOTIFIED DR. BRAR. PATIENT STARTED ON 500 ML NS BOLUS. 17:06 Reassessment: Patient appears in no apparent distress at this time. Patient and/or db family updated on plan of care and expected duration. Pain level reassessed. Patient is alert, oriented x 3, equal unlabored respirations, skin warm/dry/pink. Patient states feeling better. Patient states symptoms have improved. Pain: Denies pain. Vital Signs: 15:20 BP 127 / 65; Pulse 98; Resp 16; Temp 98; Pulse Ox 98% ; Weight 88.45 kg; Height 5 ft. 8 db in. ; 16:25 BP 110 / 65; Pulse 92; Resp 18; Pulse Ox 96% ; db 17:03 BP 96 / 57; Pulse 84; Resp 18; Pulse Ox 97% on R/A; db 15:20 Body Mass Index 29.65 (88.45 kg, 172.72 cm) db ED Course: 15:21 Patient arrived in ED. ec2 15:21 Jag Brar MD is Attending Physician. ec2 15:30 Suize Taveras, RN is Primary Nurse. db 15:36 Triage completed. db 15:36 Arm band placed on Patient placed in an exam room. db 15:44 Maintain EMS IV. Dressing intact. Good blood return noted. Site clean \T\ dry. Gauge \T\ db site: 20 G LAC. 15:54 Patient has correct armband on for positive identification. Call light in reach. Side db rails up X 1. Provided Education on:. Client placed on continuous cardiac and pulse oximetry monitoring. NIBP monitoring applied. shelter monitor on. Pulse ox on. NIBP on. Warm blanket given. Pillow given. 15:55 Initial lab(s) drawn, sent to lab. EKG done. Patient maintains SpO2 saturation greater db than 95% on room air. 16:16 XRAY Chest (1 view) In Process Unspecified. EDMS 17:06 No provider procedures requiring assistance completed. IV discontinued, intact, db bleeding controlled, No redness/swelling at site. Administered Medications: 15:45 Drug: morphine IVP or IV 4 mg IVP once over 4 mins Route: IVP; Infused Over: 4 mins; db Site: right antecubital; 17:05 Follow up: Response: No adverse reaction db 15:45 Drug: Ondansetron IVP 4 mg IVP once; over 2 minutes Route: IVP; Site: right antecubital;db 17:06 Follow up: Response: No adverse reaction db 16:26 Drug: NS 0.9% IV 500 ml IV at bolus once; to be given as a bolus over 30 minutes Route: db IV; Rate: bolus; Site: left antecubital; 17:06 Follow up: Response: No adverse reaction; IV Status: Completed infusion; IV Intake: db 500ml Medication: 15:54 VIS not applicable for this client. db Intake: 17:06 IV: 500ml; Total: 500ml. db Outcome: 16:33 Discharge ordered by . ec2 17:06 Discharged to home ambulatory, with family, db 17:06 Condition: stable 17:06 Discharge instructions given to patient, Instructed on discharge instructions, follow up and referral plans. Prescriptions given X 1, 17:08 Patient left the ED. db Signatures: Dispatcher [employer] EDSuzie Gabriel RN RN db Corral, Edwin, MD MD ec2 Corrections: (The following items were deleted from the chart) 15:44 15:20 Chief complaint: EMS states: SHARP CHEST PAIN X 5 DAYS WORSE PRIOR TO EMS db ARRIVAL. PAIN RADIATING INTO LEFT SHOULDER. db
--- NOTE | 2024-10-13 16:33 | EDPHYS ---
Physician Documentation [facility] Name: Vilma Paz Age: 39 yrs Sex: Female : 1985 Arrival Date: 10/13/2024 Time: 15:20 Bed 13 Private MD: ED Physician Jag Brar HPI: 10/13 15:26 This 39 yrs old Female presents to ER via Unassigned with complaints of Chest Pain. ec2 15:26 Patient arrives today for evaluation of several days of chest pain. Patient reports ec2 that she has been experiencing chest pain for the past several days, no specific alleviating or exacerbating factors. Reports that she noticed the pain worsened at night. Patient reports no difficulty breathing. Denies any significant medical problems, no daily medications. Patient reports no cardiac history. 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 - Infectious Disease History:: Denies. - Social history:: Smoking status: Patient denies any tobacco usage or history of. ROS: 15:27 Constitutional: as per hpi ec2 Exam: 15:27 Constitutional: GEN: NAD Head: atraumatic Eyes: EOMI Ears: External ears are ec2 normal. CV: regular rate LUNGS: no respiratory distress ABD: non-distended SKIN: no evidence of rashes MSK: no evidence of trauma Vital Signs: 15:20 BP 127 / 65; Pulse 98; Resp 16; Temp 98; Pulse Ox 98% ; Weight 88.45 kg; Height 5 ft. 8 db in. ; 16:25 BP 110 / 65; Pulse 92; Resp 18; Pulse Ox 96% ; db 17:03 BP 96 / 57; Pulse 84; Resp 18; Pulse Ox 97% on R/A; db 15:20 Body Mass Index 29.65 (88.45 kg, 172.72 cm) db MDM: 15:21 Medical Screening Exam initiated ec2 15:27 Data reviewed: vital signs, nurses notes. ED course: Patient arrives today for ec2 evaluation of chest pain. Examination is unrevealing. Will obtain a cardiac workup, obtain a chest x-ray. Differential includes processes such as esophagitis, gastritis, ACS.. 15:34 ED course: EKG independently reviewed and interpreted by me, shows normal sinus rhythm, ec2 rate of 88, no acute ST segment elevations, intervals are nonactionable.. 16:33 ED course: Chest x-ray independently reviewed and interpreted by me, shows no acute ec2 intrathoracic process. On reassessment patient is well-appearing no acute distress. Will discharge home. Return precautions given.. 10/13 15:22 Order name: Basic Metabolic Panel; Complete Time: 16:24 ec2 10/13 15:22 Order name: CBC with Diff; Complete Time: 16:24 ec2 10/13 15:22 Order name: NT PRO-BNP; Complete Time: 16:24 ec2 10/13 15:22 Order name: PT-INR; Complete Time: 16:24 ec2 10/13 15:22 Order name: Troponin HS; Complete Time: 16:24 ec2 10/13 15:22 Order name: XRAY Chest (1 view); Complete Time: 16:30 ec2 10/13 15:22 Order name: EKG; Complete Time: 15:22 ec2 10/13 15:22 Order name: Cardiac monitoring; Complete Time: 15:45 ec2 10/13 15:22 Order name: EKG - Nurse/Tech; Complete Time: 15:43 ec2 10/13 15:22 Order name: IV Saline Lock; Complete Time: 15:45 ec2 10/13 15:22 Order name: Labs collected and sent; Complete Time: 15:45 ec2 10/13 15:22 Order name: O2 Per Protocol; Complete Time: 15:45 ec2 10/13 15:22 Order name: O2 Sat Monitoring; Complete Time: 15:45 ec2 Administered Medications: 15:45 Drug: morphine IVP or IV 4 mg IVP once over 4 mins Route: IVP; Infused Over: 4 mins; db Site: right antecubital; 17:05 Follow up: Response: No adverse reaction db 15:45 Drug: Ondansetron IVP 4 mg IVP once; over 2 minutes Route: IVP; Site: right antecubital;db 17:06 Follow up: Response: No adverse reaction db 16:26 Drug: NS 0.9% IV 500 ml IV at bolus once; to be given as a bolus over 30 minutes Route: db IV; Rate: bolus; Site: left antecubital; 17:06 Follow up: Response: No adverse reaction; IV Status: Completed infusion; IV Intake: db 500ml Disposition Summary: 10/13/24 16:33 Discharge Ordered Notes: Location: Home ec2 Condition: Stable ec2 Diagnosis - Chest pain, unspecified ec2 Followup: ec2 - With: Private Physician - When: - Reason: Re-evaluation by your physician Discharge Instructions: - Discharge Summary Sheet ec2 - Nonspecific Chest Pain, Adult, [id number] ec2 Forms: - Medication Reconciliation Form ec2 - Antibiotic Education ec2 - Prescription Opioid Use ec2 - Patient Portal Instructions ec2 - Leadership Thank You Letter ec2 Prescriptions: - Pepcid 20 mg Oral Tablet - take 1 tablet ORAL route once daily; 20 tablet; Refills: 0, Product Selection ec2 Permitted Signatures: Dispatcher [employer] Suzie Ott RN RN db Corral, Edwin, MD MD ec2
[2024-10-13 17:16] VITALS: TEMP 98
[2024-10-13 17:19] VITALS: BP 96/57; O2SAT 97
== END 2024-10-13 17:08 | disposition home or self-care (01) ==
LOC: ER 15:20
DX: R07.9 Chest pain, unspecified (principal)
CPT/HCPCS: 96361; 85025; 80048; 36415; 85610; 84484; 83880; 71045; 96375; 96374; 99285; J2405; J7040; 93005